=== PATIENT | female | born 1935 | race Caucasian/White ===

== ENCOUNTER 2020-08-21 20:21 | Inpatient (IN) ==
[2020-08-24] MEDS: Ipratropium/Albuterol Neb 3 ML IH SCH ×2 (16:28→20:25)
[2020-08-24] MEDS ORDERED: Dextrose Gel 15 GM/37.5 ML TUBE PO PRN ×2 (16:35)
[2020-08-24] MEDS ORDERED: *HR* Dextrose 50 % in Water (Vial) 50 ML VIAL IVP PRN (16:35)
[2020-08-24] MEDS ORDERED: D5% in Water 1,000 ML IVC PRN (16:35)
[2020-08-24] MEDS ORDERED: clonazePAM 1 MG TABLET PO SCH (17:00)
[2020-08-24] MEDS: Insulin LISPRO 300 UNITS/3 ML VIAL SUBQ SCH ×2 (17:55→20:58)
[2020-08-24] MEDS: clonazePAM 0.5 MG TABLET PO SCH ×2 (17:55→20:58)
[2020-08-25] MEDS: Ipratropium/Albuterol Neb 3 ML IH SCH ×6 (04:00→20:28)
[2020-08-25 07:07] LABS: Basophils % 0.5 %; Eosinophils # 0.2 K/mcL (0.0-0.6); Hemoglobin 9.5 g/dL (11.5-15.4); Immature Granulocytes % 0.3 % (0-4); Lymphocytes # 1.7 K/mcL (0.6-4.6); Lymphocytes % 22.2 %; Mean Corpuscular HGB Conc 31.7 g/dL (31.6-35.5); Mean Corpuscular Volume 85.2 fL (83.0-100.0); Mean Platelet Volume 9.2 fL (9.4-12.4); Monocytes # 0.7 K/mcL (0.0-1.3); Monocytes % 9.4 %; Neutrophils # 4.9 K/mcL (1.6-8.9); Platelet Count 376 K/mcL (140-400); Red Blood Count 3.52 M/mcL (3.82-4.97); Red Cell Distribution Width 18.7 % (11.5-14.5); Segmented Neutrophils % 65.6 %; White Blood Count 7.4 K/mcL (4.3-11.1)
[2020-08-25 07:26] LABS: BUN/Creatinine Ratio 19 (6-26); Blood Urea Nitrogen 13 mg/dL (8-23); Calcium 8.3 mg/dL (8.6-10.3); Carbon Dioxide 33 mEq/L (23-29); Chloride 95 mEq/L (98-107); Glucose 151 mg/dL (70-105); Osmolality,Calculated 281 (280-300); Potassium 3.6 mEq/L (3.5-5.1); Sodium 134 mEq/L (136-145); eGFR For African Americans > 60 (> 60); eGFR For Non-African Americans > 60 (> 60)
[2020-08-25] MEDS: *HR* Glimepiride 2 MG TABLET PO SCH (09:46)
[2020-08-25] MEDS: clonazePAM 0.5 MG TABLET PO SCH ×4 (09:47→20:36)
[2020-08-25] MEDS: *HR* SitaGLIPtin 25 MG TABLET PO SCH (09:47)
[2020-08-25] MEDS: hydroCHLOROthiazide 25 MG TABLET PO SCH (09:47)
[2020-08-25] MEDS: Aspirin 81 MG TAB.CHEW PO SCH (09:47)
[2020-08-25] MEDS: *HR* Metformin 500 MG TABLET PO SCH (09:47)
[2020-08-25] MEDS: Furosemide 20 MG TABLET PO SCH (09:48)
[2020-08-25] MEDS: FLUoxetine HCl 10 MG CAPSULE PO SCH (09:48)
[2020-08-25] MEDS: amLODIPine 5 MG TABLET PO SCH (09:48)
[2020-08-25] MEDS: Insulin LISPRO 300 UNITS/3 ML VIAL SUBQ SCH ×4 (09:48→20:35)
[2020-08-25] MEDS: IRON POLYSACCHARIDE COMPLEX 180 MG PO SCH (09:49)
[2020-08-26] MEDS: Ipratropium/Albuterol Neb 3 ML IH SCH ×6 (00:45→20:08)
[2020-08-26] MEDS: *HR* Metformin 500 MG TABLET PO SCH (08:13)
[2020-08-26] MEDS: FLUoxetine HCl 10 MG CAPSULE PO SCH (08:13)
[2020-08-26] MEDS: Insulin LISPRO 300 UNITS/3 ML VIAL SUBQ SCH ×4 (08:13→20:28)
[2020-08-26] MEDS: Aspirin 81 MG TAB.CHEW PO SCH (08:13)
[2020-08-26] MEDS: clonazePAM 0.5 MG TABLET PO SCH ×4 (08:14→20:25)
[2020-08-26] MEDS: *HR* SitaGLIPtin 25 MG TABLET PO SCH (08:14)
[2020-08-26] MEDS: hydroCHLOROthiazide 25 MG TABLET PO SCH (08:14)
[2020-08-26] MEDS: amLODIPine 5 MG TABLET PO SCH (08:14)
[2020-08-26] MEDS: Furosemide 20 MG TABLET PO SCH (08:14)
[2020-08-26] MEDS: *HR* Glimepiride 2 MG TABLET PO SCH (08:15)
[2020-08-26] MEDS: IRON POLYSACCHARIDE COMPLEX 180 MG PO SCH (08:15)
[2020-08-27] MEDS: Ipratropium/Albuterol Neb 3 ML IH SCH ×6 (01:04→21:14)
[2020-08-27] MEDS: Insulin LISPRO 300 UNITS/3 ML VIAL SUBQ SCH ×4 (08:28→21:44)
[2020-08-27] MEDS: *HR* Glimepiride 2 MG TABLET PO SCH (08:29)
[2020-08-27] MEDS: hydroCHLOROthiazide 25 MG TABLET PO SCH (08:29)
[2020-08-27] MEDS: amLODIPine 5 MG TABLET PO SCH (08:29)
[2020-08-27] MEDS: Aspirin 81 MG TAB.CHEW PO SCH (08:30)
[2020-08-27] MEDS: FLUoxetine HCl 10 MG CAPSULE PO SCH (08:30)
[2020-08-27] MEDS: clonazePAM 0.5 MG TABLET PO SCH ×4 (08:30→21:37)
[2020-08-27] MEDS: *HR* Metformin 500 MG TABLET PO SCH (08:30)
[2020-08-27] MEDS: Furosemide 20 MG TABLET PO SCH (08:30)
[2020-08-27] MEDS: *HR* SitaGLIPtin 25 MG TABLET PO SCH (08:31)
[2020-08-27] MEDS: IRON POLYSACCHARIDE COMPLEX 180 MG PO SCH (21:32)
[2020-08-28] MEDS: Ondansetron ODT 4 MG TAB.RAPDIS PO PRN (00:35)
[2020-08-28] MEDS: Ipratropium/Albuterol Neb 3 ML IH SCH ×6 (00:46→20:28)
[2020-08-28] MEDS ORDERED: Melatonin 3 MG TABLET PO ONE (00:55)
[2020-08-28] MEDS: Acetaminophen 325 MG TABLET PO PRN (01:05)
[2020-08-28] MEDS: Aspirin 81 MG TAB.CHEW PO SCH (08:08)
[2020-08-28] MEDS: *HR* Metformin 500 MG TABLET PO SCH (08:11)
[2020-08-28] MEDS: amLODIPine 5 MG TABLET PO SCH (08:11)
[2020-08-28] MEDS: FLUoxetine HCl 10 MG CAPSULE PO SCH (08:11)
[2020-08-28] MEDS: *HR* Glimepiride 2 MG TABLET PO SCH (08:11)
[2020-08-28] MEDS: Furosemide 20 MG TABLET PO SCH (08:11)
[2020-08-28] MEDS: IRON POLYSACCHARIDE COMPLEX 180 MG PO SCH (08:12)
[2020-08-28] MEDS: clonazePAM 0.5 MG TABLET PO SCH ×4 (08:12→21:54)
[2020-08-28] MEDS: Insulin LISPRO 300 UNITS/3 ML VIAL SUBQ SCH ×4 (08:12→21:31)
[2020-08-28] MEDS: hydroCHLOROthiazide 25 MG TABLET PO SCH (08:12)
[2020-08-28] MEDS: *HR* SitaGLIPtin 25 MG TABLET PO SCH (08:12)
[2020-08-29] MEDS: Ipratropium/Albuterol Neb 3 ML IH SCH ×6 (05:54→20:33)
[2020-08-29] MEDS: Acetaminophen 325 MG TABLET PO PRN ×2 (07:30→20:07)
[2020-08-29] MEDS: FLUoxetine HCl 10 MG CAPSULE PO SCH (08:25)
[2020-08-29] MEDS: *HR* SitaGLIPtin 25 MG TABLET PO SCH (08:26)
[2020-08-29] MEDS: amLODIPine 5 MG TABLET PO SCH (08:27)
[2020-08-29] MEDS: *HR* Glimepiride 2 MG TABLET PO SCH (08:27)
[2020-08-29] MEDS: hydroCHLOROthiazide 25 MG TABLET PO SCH (08:28)
[2020-08-29] MEDS: Aspirin 81 MG TAB.CHEW PO SCH (08:28)
[2020-08-29] MEDS: Furosemide 20 MG TABLET PO SCH (08:28)
[2020-08-29] MEDS: *HR* Metformin 500 MG TABLET PO SCH (08:28)
[2020-08-29] MEDS: Insulin LISPRO 300 UNITS/3 ML VIAL SUBQ SCH ×4 (08:29→19:36)
[2020-08-29] MEDS: Nicotine 21 MG PATCH.TD24 TD SCH (08:29)
[2020-08-29] MEDS: clonazePAM 0.5 MG TABLET PO SCH ×4 (08:29→19:55)
[2020-08-29] MEDS: IRON POLYSACCHARIDE COMPLEX 180 MG PO SCH (09:20)
[2020-08-30] MEDS: Ipratropium/Albuterol Neb 3 ML IH SCH ×6 (00:20→20:30)
[2020-08-30] MEDS: Acetaminophen 325 MG TABLET PO PRN ×2 (06:05→20:49)
[2020-08-30] MEDS: Insulin LISPRO 300 UNITS/3 ML VIAL SUBQ SCH ×4 (09:12→20:12)
[2020-08-30] MEDS: clonazePAM 0.5 MG TABLET PO SCH ×4 (09:49→20:48)
[2020-08-30] MEDS: *HR* Metformin 500 MG TABLET PO SCH (09:49)
[2020-08-30] MEDS: amLODIPine 5 MG TABLET PO SCH (09:49)
[2020-08-30] MEDS: Aspirin 81 MG TAB.CHEW PO SCH (09:50)
[2020-08-30] MEDS: *HR* SitaGLIPtin 25 MG TABLET PO SCH (09:50)
[2020-08-30] MEDS: Furosemide 20 MG TABLET PO SCH (09:51)
[2020-08-30] MEDS: FLUoxetine HCl 10 MG CAPSULE PO SCH (09:51)
[2020-08-30] MEDS: hydroCHLOROthiazide 25 MG TABLET PO SCH (09:51)
[2020-08-30] MEDS: IRON POLYSACCHARIDE COMPLEX 180 MG PO SCH (09:52)
[2020-08-30] MEDS: Nicotine 21 MG PATCH.TD24 TD SCH (09:52)
[2020-08-30] MEDS: *HR* Glimepiride 2 MG TABLET PO SCH (20:13)
[2020-08-30] MEDS: Melatonin 3 MG TABLET PO PRN (20:49)
[2020-08-31] MEDS: Ipratropium/Albuterol Neb 3 ML IH SCH ×6 (00:04→20:33)
[2020-08-31 08:04] LABS: BUN/Creatinine Ratio 27 (6-26); Blood Urea Nitrogen 21 mg/dL (8-23); Calcium 8.8 mg/dL (8.6-10.3); Carbon Dioxide 33 mEq/L (23-29); Chloride 97 mEq/L (98-107); Glucose 113 mg/dL (70-105); Hematocrit 29.8 % (35.3-44.9); Hemoglobin 9.7 g/dL (11.5-15.4); Mean Corpuscular HGB Conc 32.6 g/dL (31.6-35.5); Mean Corpuscular Hemoglobin 27.6 pg (28.0-33.3); Mean Corpuscular Volume 84.7 fL (83.0-100.0); Osmolality,Calculated 284 (280-300); Platelet Count 442 K/mcL (140-400); Red Blood Count 3.52 M/mcL (3.82-4.97); Red Cell Distribution Width 18.8 % (11.5-14.5); Sodium 135 mEq/L (136-145); White Blood Count 4.3 K/mcL (4.3-11.1); eGFR For African Americans > 60 (> 60); eGFR For Non-African Americans > 60 (> 60)
[2020-08-31 08:05] LABS: Basophils # 0.1 K/mcL (0.0-0.2); Basophils % 1.2 %; Eosinophils # 0.3 K/mcL (0.0-0.6); Eosinophils % 6.1 %; Immature Granulocytes % 0.2 % (0-4); Lymphocytes # 1.7 K/mcL (0.6-4.6); Lymphocytes % 40.1 %; Mean Platelet Volume 9.6 fL (9.4-12.4); Monocytes # 0.6 K/mcL (0.0-1.3); Monocytes % 13.6 %; Neutrophils # 1.7 K/mcL (1.6-8.9); Segmented Neutrophils % 38.8 %
[2020-08-31] MEDS: clonazePAM 0.5 MG TABLET PO SCH ×4 (09:24→20:15)
[2020-08-31] MEDS: *HR* SitaGLIPtin 25 MG TABLET PO SCH (09:24)
[2020-08-31] MEDS: Acetaminophen 325 MG TABLET PO PRN (09:25)
[2020-08-31] MEDS: amLODIPine 5 MG TABLET PO SCH (09:25)
[2020-08-31] MEDS: Aspirin 81 MG TAB.CHEW PO SCH (09:25)
[2020-08-31] MEDS: *HR* Metformin 500 MG TABLET PO SCH (09:25)
[2020-08-31] MEDS: hydroCHLOROthiazide 25 MG TABLET PO SCH (09:25)
[2020-08-31] MEDS: Furosemide 20 MG TABLET PO SCH (09:25)
[2020-08-31] MEDS: FLUoxetine HCl 10 MG CAPSULE PO SCH (09:25)
[2020-08-31] MEDS: Insulin LISPRO 300 UNITS/3 ML VIAL SUBQ SCH ×4 (09:26→20:17)
[2020-08-31] MEDS: Nicotine 21 MG PATCH.TD24 TD SCH (09:26)
[2020-08-31] MEDS: IRON POLYSACCHARIDE COMPLEX 180 MG PO SCH (09:26)
[2020-09-01] MEDS: Ipratropium/Albuterol Neb 3 ML IH SCH ×6 (01:11→20:29)
[2020-09-01] MEDS: Insulin LISPRO 300 UNITS/3 ML VIAL SUBQ SCH ×4 (07:37→20:48)
[2020-09-01] MEDS: Furosemide 20 MG TABLET PO SCH (09:03)
[2020-09-01] MEDS: *HR* Metformin 500 MG TABLET PO SCH (09:03)
[2020-09-01] MEDS: clonazePAM 0.5 MG TABLET PO SCH ×4 (09:03→21:08)
[2020-09-01] MEDS: FLUoxetine HCl 10 MG CAPSULE PO SCH (09:04)
[2020-09-01] MEDS: amLODIPine 5 MG TABLET PO SCH (09:04)
[2020-09-01] MEDS: Aspirin 81 MG TAB.CHEW PO SCH (09:04)
[2020-09-01] MEDS: *HR* SitaGLIPtin 25 MG TABLET PO SCH (09:04)
[2020-09-01] MEDS: hydroCHLOROthiazide 25 MG TABLET PO SCH (09:04)
[2020-09-01] MEDS: Nicotine 21 MG PATCH.TD24 TD SCH (09:05)
[2020-09-01] MEDS: IRON POLYSACCHARIDE COMPLEX 180 MG PO SCH (09:08)
[2020-09-01] MEDS ORDERED: *HR* OxyCODONE/APAP 7.5/325 TABLET PO STA (09:23)
[2020-09-01] MEDS: Melatonin 3 MG TABLET PO PRN (21:08)
[2020-09-02] MEDS: Ipratropium/Albuterol Neb 3 ML IH SCH ×3 (00:36→07:23)
[2020-09-02] MEDS: Insulin LISPRO 300 UNITS/3 ML VIAL SUBQ SCH ×4 (09:27→21:58)
[2020-09-02] MEDS: *HR* Metformin 500 MG TABLET PO SCH (09:28)
[2020-09-02] MEDS: hydroCHLOROthiazide 25 MG TABLET PO SCH (09:28)
[2020-09-02] MEDS: *HR* SitaGLIPtin 25 MG TABLET PO SCH (09:29)
[2020-09-02] MEDS: Aspirin 81 MG TAB.CHEW PO SCH (09:29)
[2020-09-02] MEDS: clonazePAM 0.5 MG TABLET PO SCH ×4 (09:30→22:04)
[2020-09-02] MEDS: amLODIPine 5 MG TABLET PO SCH (09:30)
[2020-09-02] MEDS: FLUoxetine HCl 10 MG CAPSULE PO SCH (09:31)
[2020-09-02] MEDS: Furosemide 20 MG TABLET PO SCH (09:32)
[2020-09-02] MEDS: IRON POLYSACCHARIDE COMPLEX 180 MG PO SCH (09:33)
[2020-09-02] MEDS: Nicotine 21 MG PATCH.TD24 TD SCH (09:33)
[2020-09-02] MEDS ORDERED: Ipratropium/Albuterol Neb 3 ML IH PRN (09:58)
[2020-09-03] MEDS: Acetaminophen 325 MG TABLET PO PRN (04:34)
[2020-09-03] MEDS: Insulin LISPRO 300 UNITS/3 ML VIAL SUBQ SCH ×4 (09:03→20:55)
[2020-09-03] MEDS: clonazePAM 0.5 MG TABLET PO SCH ×3 (09:05→20:54)
[2020-09-03] MEDS: Aspirin 81 MG TAB.CHEW PO SCH (09:05)
[2020-09-03] MEDS: hydroCHLOROthiazide 25 MG TABLET PO SCH (09:05)
[2020-09-03] MEDS: amLODIPine 5 MG TABLET PO SCH (09:05)
[2020-09-03] MEDS: Furosemide 20 MG TABLET PO SCH (09:06)
[2020-09-03] MEDS: IRON POLYSACCHARIDE COMPLEX 180 MG PO SCH (09:06)
[2020-09-03] MEDS: FLUoxetine HCl 10 MG CAPSULE PO SCH (09:06)
[2020-09-03] MEDS: *HR* Metformin 500 MG TABLET PO SCH (09:06)
[2020-09-03] MEDS: Nicotine 21 MG PATCH.TD24 TD SCH (09:12)
[2020-09-03] MEDS: Melatonin 3 MG TABLET PO PRN (20:54)
[2020-09-04] MEDS: Insulin LISPRO 300 UNITS/3 ML VIAL SUBQ SCH ×4 (09:18→20:21)
[2020-09-04] MEDS: FLUoxetine HCl 10 MG CAPSULE PO SCH (09:20)
[2020-09-04] MEDS: Furosemide 20 MG TABLET PO SCH (09:20)
[2020-09-04] MEDS: *HR* Metformin 500 MG TABLET PO SCH (09:20)
[2020-09-04] MEDS: amLODIPine 5 MG TABLET PO SCH (09:20)
[2020-09-04] MEDS: Nicotine 21 MG PATCH.TD24 TD SCH (09:21)
[2020-09-04] MEDS: hydroCHLOROthiazide 25 MG TABLET PO SCH (09:21)
[2020-09-04] MEDS: Aspirin 81 MG TAB.CHEW PO SCH (09:21)
[2020-09-04] MEDS: IRON POLYSACCHARIDE COMPLEX 180 MG PO SCH (09:22)
[2020-09-04] MEDS: Melatonin 3 MG TABLET PO PRN (20:20)
[2020-09-04] MEDS: clonazePAM 0.5 MG TABLET PO SCH (20:20)
[2020-09-05] MEDS: hydroCHLOROthiazide 25 MG TABLET PO SCH (08:07)
[2020-09-05] MEDS: FLUoxetine HCl 10 MG CAPSULE PO SCH (08:07)
[2020-09-05] MEDS: amLODIPine 5 MG TABLET PO SCH (08:08)
[2020-09-05] MEDS: Furosemide 20 MG TABLET PO SCH (08:08)
[2020-09-05] MEDS: IRON POLYSACCHARIDE COMPLEX 180 MG PO SCH (08:08)
[2020-09-05] MEDS: Insulin LISPRO 300 UNITS/3 ML VIAL SUBQ SCH ×4 (08:08→21:05)
[2020-09-05] MEDS: Nicotine 21 MG PATCH.TD24 TD SCH (08:08)
[2020-09-05] MEDS: Aspirin 81 MG TAB.CHEW PO SCH (08:08)
[2020-09-05] MEDS: *HR* Metformin 500 MG TABLET PO SCH (08:08)
[2020-09-05] MEDS: Melatonin 3 MG TABLET PO PRN (21:04)
[2020-09-05] MEDS: clonazePAM 0.5 MG TABLET PO SCH (21:04)
[2020-09-06] MEDS: hydroCHLOROthiazide 25 MG TABLET PO SCH (08:19)
[2020-09-06] MEDS: Aspirin 81 MG TAB.CHEW PO SCH (08:19)
[2020-09-06] MEDS: FLUoxetine HCl 10 MG CAPSULE PO SCH (08:19)
[2020-09-06] MEDS: amLODIPine 5 MG TABLET PO SCH (08:20)
[2020-09-06] MEDS: *HR* Metformin 500 MG TABLET PO SCH (08:20)
[2020-09-06] MEDS: Furosemide 20 MG TABLET PO SCH (08:20)
[2020-09-06] MEDS: Insulin LISPRO 300 UNITS/3 ML VIAL SUBQ SCH ×4 (08:21→20:30)
[2020-09-06] MEDS: Nicotine 21 MG PATCH.TD24 TD SCH (08:21)
[2020-09-06] MEDS: IRON POLYSACCHARIDE COMPLEX 180 MG PO SCH (08:21)
[2020-09-06] MEDS: clonazePAM 0.5 MG TABLET PO SCH (20:30)
[2020-09-06] MEDS: Melatonin 3 MG TABLET PO PRN (20:30)
[2020-09-07] MEDS: Insulin LISPRO 300 UNITS/3 ML VIAL SUBQ SCH ×4 (07:48→20:22)
[2020-09-07] MEDS: Furosemide 20 MG TABLET PO SCH (07:49)
[2020-09-07] MEDS: FLUoxetine HCl 10 MG CAPSULE PO SCH (07:49)
[2020-09-07] MEDS: Nicotine 21 MG PATCH.TD24 TD SCH (07:50)
[2020-09-07] MEDS: Aspirin 81 MG TAB.CHEW PO SCH (07:50)
[2020-09-07] MEDS: *HR* Metformin 500 MG TABLET PO SCH (07:50)
[2020-09-07] MEDS: hydroCHLOROthiazide 25 MG TABLET PO SCH (07:55)
[2020-09-07] MEDS: amLODIPine 5 MG TABLET PO SCH (07:56)
[2020-09-07] MEDS: IRON POLYSACCHARIDE COMPLEX 180 MG PO SCH (08:03)
[2020-09-07] MEDS: Melatonin 3 MG TABLET PO PRN (20:20)
[2020-09-07] MEDS: clonazePAM 0.5 MG TABLET PO SCH (20:20)
[2020-09-08] MEDS: FLUoxetine HCl 10 MG CAPSULE PO SCH (07:32)
[2020-09-08] MEDS: Aspirin 81 MG TAB.CHEW PO SCH (07:32)
[2020-09-08] MEDS: hydroCHLOROthiazide 25 MG TABLET PO SCH (07:32)
[2020-09-08] MEDS: amLODIPine 5 MG TABLET PO SCH (07:32)
[2020-09-08] MEDS: *HR* Metformin 500 MG TABLET PO SCH (07:32)
[2020-09-08] MEDS: Furosemide 20 MG TABLET PO SCH (07:32)
[2020-09-08] MEDS: Nicotine 21 MG PATCH.TD24 TD SCH (07:33)
[2020-09-08] MEDS: IRON POLYSACCHARIDE COMPLEX 180 MG PO SCH (07:33)
[2020-09-08] MEDS: Insulin LISPRO 300 UNITS/3 ML VIAL SUBQ SCH ×4 (07:34→20:59)
[2020-09-08] MEDS: clonazePAM 0.5 MG TABLET PO SCH (21:00)
[2020-09-08] MEDS: Melatonin 3 MG TABLET PO PRN (21:01)
[2020-09-09] MEDS: amLODIPine 5 MG TABLET PO SCH (08:18)
[2020-09-09] MEDS: Insulin LISPRO 300 UNITS/3 ML VIAL SUBQ SCH ×5 (08:18→20:18)
[2020-09-09] MEDS: Aspirin 81 MG TAB.CHEW PO SCH (08:18)
[2020-09-09] MEDS: FLUoxetine HCl 10 MG CAPSULE PO SCH (08:18)
[2020-09-09] MEDS: Furosemide 20 MG TABLET PO SCH (08:18)
[2020-09-09] MEDS: *HR* Metformin 500 MG TABLET PO SCH (08:18)
[2020-09-09] MEDS: hydroCHLOROthiazide 25 MG TABLET PO SCH (08:18)
[2020-09-09] MEDS: Nicotine 21 MG PATCH.TD24 TD SCH (08:19)
[2020-09-09] MEDS: IRON POLYSACCHARIDE COMPLEX 180 MG PO SCH (08:19)
[2020-09-09] MEDS: Melatonin 3 MG TABLET PO PRN (20:17)
[2020-09-09] MEDS: clonazePAM 0.5 MG TABLET PO SCH (20:18)
[2020-09-10] MEDS: hydroCHLOROthiazide 25 MG TABLET PO SCH (07:59)
[2020-09-10] MEDS: Aspirin 81 MG TAB.CHEW PO SCH (07:59)
[2020-09-10] MEDS: *HR* Metformin 500 MG TABLET PO SCH (07:59)
[2020-09-10] MEDS: Furosemide 20 MG TABLET PO SCH (07:59)
[2020-09-10] MEDS: amLODIPine 5 MG TABLET PO SCH (07:59)
[2020-09-10] MEDS: Nicotine 21 MG PATCH.TD24 TD SCH (08:00)
[2020-09-10] MEDS: FLUoxetine HCl 10 MG CAPSULE PO SCH (08:00)
[2020-09-10] MEDS: IRON POLYSACCHARIDE COMPLEX 180 MG PO SCH (08:00)
[2020-09-10] MEDS: Insulin LISPRO 300 UNITS/3 ML VIAL SUBQ SCH ×4 (08:17→21:02)
[2020-09-10] MEDS: Melatonin 3 MG TABLET PO PRN (21:01)
[2020-09-10] MEDS: clonazePAM 0.5 MG TABLET PO SCH (21:01)
[2020-09-11] MEDS: FLUoxetine HCl 10 MG CAPSULE PO SCH (08:08)
[2020-09-11] MEDS: amLODIPine 5 MG TABLET PO SCH (08:08)
[2020-09-11] MEDS: *HR* Metformin 500 MG TABLET PO SCH (08:08)
[2020-09-11] MEDS: Aspirin 81 MG TAB.CHEW PO SCH (08:08)
[2020-09-11] MEDS: hydroCHLOROthiazide 25 MG TABLET PO SCH (08:08)
[2020-09-11] MEDS: Nicotine 21 MG PATCH.TD24 TD SCH (08:09)
[2020-09-11] MEDS: Furosemide 20 MG TABLET PO SCH (08:09)
[2020-09-11] MEDS: IRON POLYSACCHARIDE COMPLEX 180 MG PO SCH (08:09)
[2020-09-11] MEDS: Insulin LISPRO 300 UNITS/3 ML VIAL SUBQ SCH ×4 (08:13→20:44)
[2020-09-11] MEDS: Melatonin 3 MG TABLET PO PRN (20:43)
[2020-09-11] MEDS: Ondansetron ODT 4 MG TAB.RAPDIS PO PRN (20:43)
[2020-09-11] MEDS: clonazePAM 0.5 MG TABLET PO SCH (20:43)
[2020-09-12] MEDS: Insulin LISPRO 300 UNITS/3 ML VIAL SUBQ SCH ×4 (09:20→21:02)
[2020-09-12] MEDS: Aspirin 81 MG TAB.CHEW PO SCH (09:21)
[2020-09-12] MEDS: hydroCHLOROthiazide 25 MG TABLET PO SCH (09:21)
[2020-09-12] MEDS: *HR* Metformin 500 MG TABLET PO SCH (09:21)
[2020-09-12] MEDS: Furosemide 20 MG TABLET PO SCH (09:21)
[2020-09-12] MEDS: amLODIPine 5 MG TABLET PO SCH (09:21)
[2020-09-12] MEDS: IRON POLYSACCHARIDE COMPLEX 180 MG PO SCH (09:22)
[2020-09-12] MEDS: Nicotine 21 MG PATCH.TD24 TD SCH (09:22)
[2020-09-12] MEDS: FLUoxetine HCl 10 MG CAPSULE PO SCH (09:23)
[2020-09-12] MEDS: clonazePAM 0.5 MG TABLET PO SCH (21:00)
[2020-09-12] MEDS: Melatonin 3 MG TABLET PO PRN (21:02)
[2020-09-13 07:15] LABS: Basophils % 0.4 %; Eosinophils # 0.2 K/mcL (0.0-0.6); Eosinophils % 4.2 %; Hemoglobin 9.7 g/dL (11.5-15.4); Immature Granulocytes % 0.4 % (0-4); Lymphocytes # 2.2 K/mcL (0.6-4.6); Lymphocytes % 38.3 %; Mean Corpuscular HGB Conc 32.3 g/dL (31.6-35.5); Mean Corpuscular Volume 86.7 fL (83.0-100.0); Mean Platelet Volume 9.7 fL (9.4-12.4); Monocytes # 0.7 K/mcL (0.0-1.3); Monocytes % 11.5 %; Neutrophils # 2.6 K/mcL (1.6-8.9); Platelet Count 300 K/mcL (140-400); Red Blood Count 3.46 M/mcL (3.82-4.97); Red Cell Distribution Width 18.1 % (11.5-14.5); Segmented Neutrophils % 45.2 %; White Blood Count 5.7 K/mcL (4.3-11.1)
[2020-09-13 07:56] LABS: BUN/Creatinine Ratio 32 (6-26); Blood Urea Nitrogen 25 mg/dL (8-23); Calcium 9.1 mg/dL (8.6-10.3); Carbon Dioxide 33 mEq/L (23-29); Chloride 98 mEq/L (98-107); Glucose 165 mg/dL (70-105); Osmolality,Calculated 292 (280-300); Potassium 4.1 mEq/L (3.5-5.1); Sodium 137 mEq/L (136-145); eGFR For African Americans > 60 (> 60); eGFR For Non-African Americans > 60 (> 60)
[2020-09-13] MEDS: Aspirin 81 MG TAB.CHEW PO SCH (08:03)
[2020-09-13] MEDS: Furosemide 20 MG TABLET PO SCH (08:03)
[2020-09-13] MEDS: *HR* Metformin 500 MG TABLET PO SCH (08:03)
[2020-09-13] MEDS: hydroCHLOROthiazide 25 MG TABLET PO SCH (08:03)
[2020-09-13] MEDS: amLODIPine 5 MG TABLET PO SCH (08:03)
[2020-09-13] MEDS: Nicotine 21 MG PATCH.TD24 TD SCH (08:04)
[2020-09-13] MEDS: FLUoxetine HCl 10 MG CAPSULE PO SCH (08:04)
[2020-09-13] MEDS: IRON POLYSACCHARIDE COMPLEX 180 MG PO SCH (08:05)
[2020-09-13] MEDS: Insulin LISPRO 300 UNITS/3 ML VIAL SUBQ SCH ×4 (08:05→20:56)
[2020-09-13] MEDS: clonazePAM 0.5 MG TABLET PO SCH (20:05)
[2020-09-13] MEDS: Melatonin 3 MG TABLET PO PRN (20:06)
[2020-09-14] MEDS: IRON POLYSACCHARIDE COMPLEX 180 MG PO SCH (09:07)
[2020-09-14] MEDS: hydroCHLOROthiazide 25 MG TABLET PO SCH (09:14)
[2020-09-14] MEDS: Aspirin 81 MG TAB.CHEW PO SCH (09:14)
[2020-09-14] MEDS: Furosemide 20 MG TABLET PO SCH (09:14)
[2020-09-14] MEDS: *HR* Metformin 500 MG TABLET PO SCH (09:15)
[2020-09-14] MEDS: FLUoxetine HCl 10 MG CAPSULE PO SCH (09:15)
[2020-09-14] MEDS: amLODIPine 5 MG TABLET PO SCH (09:15)
[2020-09-14] MEDS: Nicotine 21 MG PATCH.TD24 TD SCH (09:16)
[2020-09-14] MEDS: Insulin LISPRO 300 UNITS/3 ML VIAL SUBQ SCH ×4 (09:16→20:17)
[2020-09-14] MEDS: Ondansetron ODT 4 MG TAB.RAPDIS PO PRN (09:21)
[2020-09-14] MEDS: clonazePAM 0.5 MG TABLET PO SCH (20:14)
[2020-09-14] MEDS: Melatonin 3 MG TABLET PO PRN (20:18)
[2020-09-15] MEDS: IRON POLYSACCHARIDE COMPLEX 180 MG PO SCH (09:09)
[2020-09-15] MEDS: Furosemide 20 MG TABLET PO SCH (09:17)
[2020-09-15] MEDS: *HR* Metformin 500 MG TABLET PO SCH (09:17)
[2020-09-15] MEDS: amLODIPine 5 MG TABLET PO SCH (09:17)
[2020-09-15] MEDS: Aspirin 81 MG TAB.CHEW PO SCH (09:17)
[2020-09-15] MEDS: hydroCHLOROthiazide 25 MG TABLET PO SCH (09:17)
[2020-09-15] MEDS: FLUoxetine HCl 10 MG CAPSULE PO SCH (09:17)
[2020-09-15] MEDS: Insulin LISPRO 300 UNITS/3 ML VIAL SUBQ SCH ×4 (09:17→21:01)
[2020-09-15] MEDS: clonazePAM 0.5 MG TABLET PO SCH (20:59)
[2020-09-15] MEDS: Melatonin 3 MG TABLET PO PRN (20:59)
[2020-09-16] MEDS: Ondansetron ODT 4 MG TAB.RAPDIS PO PRN ×2 (08:16→20:00)
[2020-09-16] MEDS: hydroCHLOROthiazide 25 MG TABLET PO SCH (08:20)
[2020-09-16] MEDS: *HR* Metformin 500 MG TABLET PO SCH (08:21)
[2020-09-16] MEDS: amLODIPine 5 MG TABLET PO SCH (08:21)
[2020-09-16] MEDS: Aspirin 81 MG TAB.CHEW PO SCH (08:21)
[2020-09-16] MEDS: Furosemide 20 MG TABLET PO SCH (08:21)
[2020-09-16] MEDS: FLUoxetine HCl 10 MG CAPSULE PO SCH (08:21)
[2020-09-16] MEDS: IRON POLYSACCHARIDE COMPLEX 180 MG PO SCH (08:22)
[2020-09-16] MEDS: Insulin LISPRO 300 UNITS/3 ML VIAL SUBQ SCH ×2 (08:26→17:07)
[2020-09-16] MEDS: Melatonin 3 MG TABLET PO PRN (20:00)
[2020-09-16] MEDS: clonazePAM 0.5 MG TABLET PO SCH (20:00)
[2020-09-17] MEDS: amLODIPine 5 MG TABLET PO SCH (10:52)
[2020-09-17] MEDS: hydroCHLOROthiazide 25 MG TABLET PO SCH (10:52)
[2020-09-17] MEDS: Aspirin 81 MG TAB.CHEW PO SCH (10:53)
[2020-09-17] MEDS: FLUoxetine HCl 10 MG CAPSULE PO SCH (10:53)
[2020-09-17] MEDS: Furosemide 20 MG TABLET PO SCH (10:53)
[2020-09-17] MEDS: IRON POLYSACCHARIDE COMPLEX 180 MG PO SCH (10:55)
[2020-09-17] MEDS: *HR* Metformin 500 MG TABLET PO SCH (10:55)
[2020-09-17] MEDS: Ondansetron ODT 4 MG TAB.RAPDIS PO PRN (18:43)
[2020-09-17] MEDS: Melatonin 3 MG TABLET PO PRN (21:28)
[2020-09-17] MEDS: clonazePAM 0.5 MG TABLET PO SCH (21:28)
[2020-09-18] MEDS: Ondansetron ODT 4 MG TAB.RAPDIS PO PRN (05:49)
[2020-09-18 06:36] VITALS: BP 126/52
[2020-09-18] MEDS: hydroCHLOROthiazide 25 MG TABLET PO SCH (08:45)
[2020-09-18] MEDS: Aspirin 81 MG TAB.CHEW PO SCH (08:45)
[2020-09-18] MEDS: FLUoxetine HCl 10 MG CAPSULE PO SCH (08:46)
[2020-09-18] MEDS: IRON POLYSACCHARIDE COMPLEX 180 MG PO SCH (08:46)
[2020-09-18] MEDS: amLODIPine 5 MG TABLET PO SCH (08:46)
[2020-09-18] MEDS: Furosemide 20 MG TABLET PO SCH (08:46)
[2020-09-18] MEDS: *HR* Metformin 500 MG TABLET PO SCH (08:46)
== END 2020-09-18 11:28 | disposition home health service (06) | DRG 945 ==
LOC: INPPIK 08-24 15:06
PROVIDERS: ADMIT Family Medicine; ATTEND Family Medicine

== ENCOUNTER 2021-09-23 11:54 | Inpatient (IN) ==
[2021-09-23] MEDS ORDERED: D5% in Water 1,000 ML IVC PRN (17:15)
[2021-09-23] MEDS ORDERED: Dextrose 4 GM Chewable Tablets PO PRN ×2 (17:15)
[2021-09-23] MEDS ORDERED: *HR* Dextrose 50 % in Water (Syg) 50 ML SYRINGE IVP PRN (17:15)
[2021-09-23] MEDS: *HR* OxyCODONE Immed Rel 5 MG TABLET PO PRN (19:45)
[2021-09-23] MEDS: Acetaminophen 325 MG TABLET PO PRN (21:09)
[2021-09-23] MEDS: Gabapentin 300 MG CAPSULE PO SCH (21:09)
[2021-09-23] MEDS: clonazePAM 0.5 MG TABLET PO SCH (21:09)
[2021-09-24 07:01] LABS: Basophils % 0.5 %; Eosinophils # 0.5 K/mcL (0.0-0.6); Eosinophils % 6.8 %; Hematocrit 31.2 % (35.3-44.9); Hemoglobin 9.6 g/dL (11.5-15.4); Immature Granulocytes % 0.4 % (0-4); Lymphocytes # 1.7 K/mcL (0.6-4.6); Lymphocytes % 20.9 %; Mean Corpuscular HGB Conc 30.8 g/dL (31.6-35.5); Mean Corpuscular Hemoglobin 27.4 pg (28.0-33.3); Mean Corpuscular Volume 89.1 fL (83.0-100.0); Mean Platelet Volume 9.3 fL (9.4-12.4); Monocytes # 0.7 K/mcL (0.0-1.3); Monocytes % 8.3 %; Platelet Count 397 K/mcL (140-400); Red Cell Distribution Width 14.5 % (11.5-14.5); Segmented Neutrophils % 63.1 %; White Blood Count 7.9 K/mcL (4.3-11.1)
[2021-09-24 07:22] LABS: BUN/Creatinine Ratio 20 (6-26); Blood Urea Nitrogen 15 mg/dL (8-23); Calcium 8.6 mg/dL (8.6-10.3); Carbon Dioxide 31 mEq/L (23-29); Chloride 101 mEq/L (98-107); Glucose 103 mg/dL (70-105); Osmolality,Calculated 287 (280-300); Potassium 4.1 mEq/L (3.5-5.1); Sodium 138 mEq/L (136-145); eGFR For African Americans > 60 (> 60); eGFR For Non-African Americans > 60 (> 60)
[2021-09-24] MEDS: Insulin LISPRO 300 UNITS/3 ML VIAL SUBQ SCH ×3 (07:29→17:36)
[2021-09-24] MEDS ORDERED: Aspirin 325 MG TABLET PO SCH (09:00)
[2021-09-24] MEDS: FLUoxetine HCl 10 MG CAPSULE PO SCH (10:04)
[2021-09-24] MEDS: Furosemide 20 MG TABLET PO SCH (10:04)
[2021-09-24] MEDS: amLODIPine 5 MG TABLET PO SCH (10:05)
[2021-09-24] MEDS: Gabapentin 300 MG CAPSULE PO SCH ×2 (10:06→19:53)
[2021-09-24] MEDS: Nicotine 14 MG PATCH.TD24 TD SCH (10:06)
[2021-09-24] MEDS: SITAGLIPTIN PHOS PO SCH (10:13)
[2021-09-24] MEDS: METFORMIN HCL PO SCH (10:13)
[2021-09-24] MEDS: Acetaminophen 325 MG TABLET PO PRN (18:13)
[2021-09-24] MEDS: *HR* OxyCODONE Immed Rel 5 MG TABLET PO PRN (19:54)
[2021-09-24] MEDS: clonazePAM 0.5 MG TABLET PO SCH (19:54)
[2021-09-25] MEDS ORDERED: *HR* OxyCODONE/APAP 5/325 TABLET PO ONE ×2 (01:04→14:22)
[2021-09-25] MEDS: *HR* Enoxaparin 40 MG/0.4 ML SYRINGE SQ SCH (06:47)
[2021-09-25] MEDS: Aspirin Enteric Coated 81 MG Tablet PO SCH (08:59)
[2021-09-25] MEDS: Gabapentin 300 MG CAPSULE PO SCH ×2 (08:59→20:24)
[2021-09-25] MEDS: Nicotine 14 MG PATCH.TD24 TD SCH (08:59)
[2021-09-25] MEDS: Furosemide 20 MG TABLET PO SCH (08:59)
[2021-09-25] MEDS: *HR* OxyCODONE Immed Rel 5 MG TABLET PO PRN ×2 (08:59→20:25)
[2021-09-25] MEDS: FLUoxetine HCl 10 MG CAPSULE PO SCH (08:59)
[2021-09-25] MEDS: hydrALAZINE 25 MG TABLET PO SCH ×2 (08:59→16:03)
[2021-09-25] MEDS: amLODIPine 5 MG TABLET PO SCH (08:59)
[2021-09-25] MEDS: METFORMIN HCL PO SCH (09:00)
[2021-09-25] MEDS: SITAGLIPTIN PHOS PO SCH (09:00)
[2021-09-25] MEDS: Insulin LISPRO 300 UNITS/3 ML VIAL SUBQ SCH ×2 (09:00→12:10)
[2021-09-25] MEDS: clonazePAM 0.5 MG TABLET PO SCH (20:25)
[2021-09-25] MEDS ORDERED: Insulin LISPRO 300 UNITS/3 ML VIAL SUBQ SCH (21:00)
[2021-09-26] MEDS: hydrALAZINE 25 MG TABLET PO SCH ×3 (00:54→16:23)
[2021-09-26] MEDS: *HR* Enoxaparin 40 MG/0.4 ML SYRINGE SQ SCH (06:27)
[2021-09-26] MEDS: *HR* OxyCODONE Immed Rel 5 MG TABLET PO PRN ×2 (07:20→16:23)
[2021-09-26] MEDS: FLUoxetine HCl 10 MG CAPSULE PO SCH (08:25)
[2021-09-26] MEDS: amLODIPine 5 MG TABLET PO SCH (08:25)
[2021-09-26] MEDS: Nicotine 14 MG PATCH.TD24 TD SCH (08:26)
[2021-09-26] MEDS: Furosemide 20 MG TABLET PO SCH (08:26)
[2021-09-26] MEDS: SITAGLIPTIN PHOS PO SCH (08:26)
[2021-09-26] MEDS: METFORMIN HCL PO SCH (08:26)
[2021-09-26] MEDS: *HR* Metformin 500 MG TABLET PO SCH (08:26)
[2021-09-26] MEDS: Gabapentin 300 MG CAPSULE PO SCH ×2 (08:26→19:57)
[2021-09-26] MEDS: Aspirin Enteric Coated 81 MG Tablet PO SCH (08:26)
[2021-09-26] MEDS: clonazePAM 0.5 MG TABLET PO SCH (19:57)
[2021-09-27] MEDS: *HR* OxyCODONE Immed Rel 5 MG TABLET PO PRN ×3 (00:19→22:53)
[2021-09-27] MEDS: hydrALAZINE 25 MG TABLET PO SCH ×3 (00:19→16:09)
[2021-09-27] MEDS: *HR* Enoxaparin 40 MG/0.4 ML SYRINGE SQ SCH (06:11)
[2021-09-27] MEDS: Gabapentin 300 MG CAPSULE PO SCH ×2 (08:16→21:08)
[2021-09-27] MEDS: amLODIPine 5 MG TABLET PO SCH (08:16)
[2021-09-27] MEDS: Aspirin Enteric Coated 81 MG Tablet PO SCH (08:16)
[2021-09-27] MEDS: FLUoxetine HCl 10 MG CAPSULE PO SCH (08:16)
[2021-09-27] MEDS: *HR* Metformin 500 MG TABLET PO SCH (08:16)
[2021-09-27] MEDS: Furosemide 20 MG TABLET PO SCH (08:17)
[2021-09-27] MEDS: Nicotine 14 MG PATCH.TD24 TD SCH (08:17)
[2021-09-27] MEDS: SITAGLIPTIN PHOS PO SCH (08:18)
[2021-09-27] MEDS: METFORMIN HCL PO SCH (08:18)
[2021-09-27] MEDS: clonazePAM 0.5 MG TABLET PO SCH (21:08)
[2021-09-28] MEDS: hydrALAZINE 25 MG TABLET PO SCH ×3 (00:51→16:46)
[2021-09-28] MEDS: *HR* Enoxaparin 40 MG/0.4 ML SYRINGE SQ SCH (05:12)
[2021-09-28] MEDS: Furosemide 20 MG TABLET PO SCH (07:25)
[2021-09-28] MEDS: Aspirin Enteric Coated 81 MG Tablet PO SCH (07:25)
[2021-09-28] MEDS: Gabapentin 300 MG CAPSULE PO SCH ×2 (07:25→20:48)
[2021-09-28] MEDS: amLODIPine 5 MG TABLET PO SCH (07:26)
[2021-09-28] MEDS: *HR* Metformin 500 MG TABLET PO SCH (07:26)
[2021-09-28] MEDS: FLUoxetine HCl 10 MG CAPSULE PO SCH (07:26)
[2021-09-28] MEDS: *HR* OxyCODONE Immed Rel 5 MG TABLET PO PRN ×3 (07:26→20:48)
[2021-09-28] MEDS: Nicotine 14 MG PATCH.TD24 TD SCH (07:27)
[2021-09-28] MEDS: SITAGLIPTIN PHOS PO SCH (07:27)
[2021-09-28] MEDS: METFORMIN HCL PO SCH (07:27)
[2021-09-28] MEDS: Acetaminophen 325 MG TABLET PO PRN (09:44)
[2021-09-28] MEDS ORDERED: *HR* OxyCODONE Immed Rel 5 MG TABLET PO PRN (09:55)
[2021-09-28] MEDS: clonazePAM 0.5 MG TABLET PO SCH (20:48)
[2021-09-28] MEDS: Melatonin 3 MG TABLET PO SCH (20:49)
[2021-09-29] MEDS: hydrALAZINE 25 MG TABLET PO SCH ×3 (00:55→16:43)
[2021-09-29] MEDS: *HR* Enoxaparin 40 MG/0.4 ML SYRINGE SQ SCH (06:51)
[2021-09-29] MEDS: *HR* Metformin 500 MG TABLET PO SCH (09:33)
[2021-09-29] MEDS: FLUoxetine HCl 10 MG CAPSULE PO SCH (09:33)
[2021-09-29] MEDS: Gabapentin 300 MG CAPSULE PO SCH ×2 (09:33→22:51)
[2021-09-29] MEDS: amLODIPine 5 MG TABLET PO SCH (09:33)
[2021-09-29] MEDS: Aspirin Enteric Coated 81 MG Tablet PO SCH (09:33)
[2021-09-29] MEDS: Furosemide 20 MG TABLET PO SCH (09:34)
[2021-09-29] MEDS: Nicotine 14 MG PATCH.TD24 TD SCH (09:34)
[2021-09-29] MEDS: *HR* OxyCODONE Immed Rel 5 MG TABLET PO PRN ×3 (09:34→22:51)
[2021-09-29] MEDS: METFORMIN HCL PO SCH (09:35)
[2021-09-29] MEDS: SITAGLIPTIN PHOS PO SCH (09:35)
[2021-09-29] MEDS: clonazePAM 0.5 MG TABLET PO SCH (22:51)
[2021-09-29] MEDS: Melatonin 3 MG TABLET PO SCH (22:52)
[2021-09-30] MEDS: hydrALAZINE 25 MG TABLET PO SCH ×4 (00:51→23:47)
[2021-09-30] MEDS: *HR* Enoxaparin 40 MG/0.4 ML SYRINGE SQ SCH (06:25)
[2021-09-30] MEDS: *HR* OxyCODONE Immed Rel 5 MG TABLET PO PRN ×2 (09:41→16:23)
[2021-09-30] MEDS: SITAGLIPTIN PHOS PO SCH (09:42)
[2021-09-30] MEDS: Nicotine 14 MG PATCH.TD24 TD SCH (09:42)
[2021-09-30] MEDS: *HR* Metformin 500 MG TABLET PO SCH (09:42)
[2021-09-30] MEDS: METFORMIN HCL PO SCH (09:42)
[2021-09-30] MEDS: FLUoxetine HCl 10 MG CAPSULE PO SCH (09:42)
[2021-09-30] MEDS: Gabapentin 300 MG CAPSULE PO SCH ×2 (09:42→20:35)
[2021-09-30] MEDS: Furosemide 20 MG TABLET PO SCH (09:42)
[2021-09-30] MEDS: amLODIPine 5 MG TABLET PO SCH (09:42)
[2021-09-30] MEDS: Aspirin Enteric Coated 81 MG Tablet PO SCH (09:42)
[2021-09-30 15:32] LABS: Basophils # 0.1 K/mcL (0.0-0.2); Basophils % 0.5 %; Eosinophils # 0.1 K/mcL (0.0-0.6); Eosinophils % 0.9 %; Hematocrit 34.1 % (35.3-44.9); Hemoglobin 10.5 g/dL (11.5-15.4); Immature Granulocytes % 0.4 % (0-4); Lymphocytes # 1.8 K/mcL (0.6-4.6); Lymphocytes % 18.3 %; Mean Corpuscular HGB Conc 30.8 g/dL (31.6-35.5); Mean Corpuscular Hemoglobin 27.5 pg (28.0-33.3); Mean Corpuscular Volume 89.3 fL (83.0-100.0); Monocytes # 0.8 K/mcL (0.0-1.3); Monocytes % 7.8 %; Neutrophils # 7.2 K/mcL (1.6-8.9); Platelet Count 472 K/mcL (140-400); Red Blood Count 3.82 M/mcL (3.82-4.97); Red Cell Distribution Width 14.6 % (11.5-14.5); Segmented Neutrophils % 72.1 %
[2021-09-30 15:45] LABS: BUN/Creatinine Ratio 19 (6-26); Blood Urea Nitrogen 17 mg/dL (8-23); Calcium 8.7 mg/dL (8.6-10.3); Carbon Dioxide 29 mEq/L (23-29); Chloride 96 mEq/L (98-107); Glucose 166 mg/dL (70-105); Osmolality,Calculated 285 (280-300); Potassium 3.5 mEq/L (3.5-5.1); Sodium 135 mEq/L (136-145); eGFR For African Americans > 60 (> 60); eGFR For Non-African Americans 59 (> 60)
[2021-09-30] MEDS: Melatonin 3 MG TABLET PO SCH (20:35)
[2021-09-30] MEDS: clonazePAM 0.5 MG TABLET PO SCH (20:35)
[2021-10-01] MEDS: *HR* OxyCODONE Immed Rel 5 MG TABLET PO PRN (05:31)
[2021-10-01] MEDS: *HR* Enoxaparin 40 MG/0.4 ML SYRINGE SQ SCH (05:31)
[2021-10-01] MEDS: Gabapentin 300 MG CAPSULE PO SCH ×2 (08:18→20:45)
[2021-10-01] MEDS: Aspirin Enteric Coated 81 MG Tablet PO SCH (08:18)
[2021-10-01] MEDS: amLODIPine 5 MG TABLET PO SCH (08:19)
[2021-10-01] MEDS: hydrALAZINE 25 MG TABLET PO SCH ×3 (08:19→22:45)
[2021-10-01] MEDS: Furosemide 20 MG TABLET PO SCH (08:19)
[2021-10-01] MEDS: Nicotine 14 MG PATCH.TD24 TD SCH (08:20)
[2021-10-01] MEDS: FLUoxetine HCl 10 MG CAPSULE PO SCH (08:20)
[2021-10-01] MEDS: *HR* Metformin 500 MG TABLET PO SCH (08:20)
[2021-10-01] MEDS: SITAGLIPTIN PHOS PO SCH (08:22)
[2021-10-01] MEDS: METFORMIN HCL PO SCH (08:22)
[2021-10-01] MEDS: Acetaminophen 325 MG TABLET PO PRN (10:37)
[2021-10-01] MEDS: Acetaminophen 325 MG TABLET PO SCH ×2 (16:52→20:52)
[2021-10-01] MEDS: clonazePAM 0.5 MG TABLET PO SCH (20:45)
[2021-10-01] MEDS: Melatonin 3 MG TABLET PO SCH (20:45)
[2021-10-02] MEDS: *HR* Enoxaparin 40 MG/0.4 ML SYRINGE SQ SCH (05:24)
[2021-10-02] MEDS: amLODIPine 5 MG TABLET PO SCH (08:13)
[2021-10-02] MEDS: Furosemide 20 MG TABLET PO SCH (08:13)
[2021-10-02] MEDS: FLUoxetine HCl 10 MG CAPSULE PO SCH (08:13)
[2021-10-02] MEDS: Nicotine 14 MG PATCH.TD24 TD SCH (08:13)
[2021-10-02] MEDS: SITAGLIPTIN PHOS PO SCH (08:14)
[2021-10-02] MEDS: Gabapentin 300 MG CAPSULE PO SCH ×2 (08:14→19:59)
[2021-10-02] MEDS: METFORMIN HCL PO SCH (08:14)
[2021-10-02] MEDS: Aspirin Enteric Coated 81 MG Tablet PO SCH (08:14)
[2021-10-02] MEDS: *HR* Metformin 500 MG TABLET PO SCH (08:14)
[2021-10-02] MEDS: hydrALAZINE 25 MG TABLET PO SCH ×2 (08:14→16:19)
[2021-10-02] MEDS: Acetaminophen 325 MG TABLET PO SCH ×3 (08:40→19:59)
[2021-10-02] MEDS: *HR* OxyCODONE Immed Rel 5 MG TABLET PO PRN ×2 (08:40→17:22)
[2021-10-02] MEDS: Melatonin 3 MG TABLET PO SCH (19:59)
[2021-10-02] MEDS: clonazePAM 0.5 MG TABLET PO SCH (19:59)
[2021-10-03] MEDS: hydrALAZINE 25 MG TABLET PO SCH ×4 (00:31→22:44)
[2021-10-03] MEDS: *HR* Enoxaparin 40 MG/0.4 ML SYRINGE SQ SCH (05:41)
[2021-10-03] MEDS: *HR* OxyCODONE Immed Rel 5 MG TABLET PO PRN ×2 (07:40→20:15)
[2021-10-03] MEDS: amLODIPine 5 MG TABLET PO SCH (08:15)
[2021-10-03] MEDS: Furosemide 20 MG TABLET PO SCH (08:15)
[2021-10-03] MEDS: *HR* Metformin 500 MG TABLET PO SCH (08:15)
[2021-10-03] MEDS: Gabapentin 300 MG CAPSULE PO SCH ×2 (08:15→20:01)
[2021-10-03] MEDS: Nicotine 14 MG PATCH.TD24 TD SCH (08:15)
[2021-10-03] MEDS: Aspirin Enteric Coated 81 MG Tablet PO SCH (08:15)
[2021-10-03] MEDS: FLUoxetine HCl 10 MG CAPSULE PO SCH (08:15)
[2021-10-03] MEDS: METFORMIN HCL PO SCH (09:12)
[2021-10-03] MEDS: SITAGLIPTIN PHOS PO SCH (09:12)
[2021-10-03] MEDS: Acetaminophen 325 MG TABLET PO SCH ×3 (10:16→20:02)
[2021-10-03] MEDS: clonazePAM 0.5 MG TABLET PO SCH (20:00)
[2021-10-03] MEDS: Melatonin 3 MG TABLET PO SCH (20:01)
[2021-10-04] MEDS: *HR* Enoxaparin 40 MG/0.4 ML SYRINGE SQ SCH (07:01)
[2021-10-04] MEDS: hydrALAZINE 25 MG TABLET PO SCH ×2 (08:35→16:35)
[2021-10-04] MEDS: Aspirin Enteric Coated 81 MG Tablet PO SCH (08:35)
[2021-10-04] MEDS: *HR* OxyCODONE Immed Rel 5 MG TABLET PO PRN ×2 (08:36→16:36)
[2021-10-04] MEDS: FLUoxetine HCl 10 MG CAPSULE PO SCH (08:36)
[2021-10-04] MEDS: Gabapentin 300 MG CAPSULE PO SCH ×2 (08:37→20:43)
[2021-10-04] MEDS: Furosemide 20 MG TABLET PO SCH (08:37)
[2021-10-04] MEDS: Nicotine 14 MG PATCH.TD24 TD SCH (08:37)
[2021-10-04] MEDS: amLODIPine 5 MG TABLET PO SCH (08:37)
[2021-10-04] MEDS: *HR* Metformin 500 MG TABLET PO SCH (08:37)
[2021-10-04] MEDS: METFORMIN HCL PO SCH (08:39)
[2021-10-04] MEDS: Acetaminophen 325 MG TABLET PO SCH ×3 (08:39→22:14)
[2021-10-04] MEDS: SITAGLIPTIN PHOS PO SCH (08:39)
[2021-10-04] MEDS: Ondansetron ODT 4 MG TAB.RAPDIS SL PRN (14:30)
[2021-10-04] MEDS: clonazePAM 0.5 MG TABLET PO SCH (20:43)
[2021-10-04] MEDS: Melatonin 3 MG TABLET PO SCH (20:43)
[2021-10-05] MEDS: *HR* OxyCODONE Immed Rel 5 MG TABLET PO PRN ×3 (01:17→19:37)
[2021-10-05] MEDS: hydrALAZINE 25 MG TABLET PO SCH ×4 (01:27→23:45)
[2021-10-05] MEDS: *HR* Enoxaparin 40 MG/0.4 ML SYRINGE SQ SCH (06:01)
[2021-10-05] MEDS: Furosemide 20 MG TABLET PO SCH (08:35)
[2021-10-05] MEDS: Gabapentin 300 MG CAPSULE PO SCH ×2 (08:35→19:36)
[2021-10-05] MEDS: amLODIPine 5 MG TABLET PO SCH (08:35)
[2021-10-05] MEDS: FLUoxetine HCl 10 MG CAPSULE PO SCH (08:35)
[2021-10-05] MEDS: Aspirin Enteric Coated 81 MG Tablet PO SCH (08:35)
[2021-10-05] MEDS: *HR* Metformin 500 MG TABLET PO SCH (08:36)
[2021-10-05] MEDS: Nicotine 14 MG PATCH.TD24 TD SCH (08:36)
[2021-10-05] MEDS: SITAGLIPTIN PHOS PO SCH (08:36)
[2021-10-05] MEDS: METFORMIN HCL PO SCH (08:36)
[2021-10-05] MEDS: Acetaminophen 325 MG TABLET PO SCH ×3 (08:37→19:38)
[2021-10-05] MEDS: Ondansetron ODT 4 MG TAB.RAPDIS SL PRN (11:58)
[2021-10-05] MEDS: clonazePAM 0.5 MG TABLET PO SCH (19:37)
[2021-10-05] MEDS: Melatonin 3 MG TABLET PO SCH (19:37)
[2021-10-06] MEDS: *HR* Enoxaparin 40 MG/0.4 ML SYRINGE SQ SCH (04:57)
[2021-10-06 07:33] LABS: Hematocrit 32.6 % (35.3-44.9); Mean Corpuscular HGB Conc 30.7 g/dL (31.6-35.5); Mean Corpuscular Hemoglobin 27.4 pg (28.0-33.3); Mean Corpuscular Volume 89.3 fL (83.0-100.0); Mean Platelet Volume 9.7 fL (9.4-12.4); Platelet Count 469 K/mcL (140-400); Red Blood Count 3.65 M/mcL (3.82-4.97); Red Cell Distribution Width 14.2 % (11.5-14.5); White Blood Count 6.8 K/mcL (4.3-11.1)
[2021-10-06 07:55] LABS: BUN/Creatinine Ratio 26 (6-26); Blood Urea Nitrogen 21 mg/dL (8-23); Calcium 8.7 mg/dL (8.6-10.3); Carbon Dioxide 28 mEq/L (23-29); Chloride 99 mEq/L (98-107); Glucose 89 mg/dL (70-105); Osmolality,Calculated 282 (280-300); Sodium 135 mEq/L (136-145); eGFR For African Americans > 60 (> 60); eGFR For Non-African Americans > 60 (> 60)
[2021-10-06] MEDS: Nicotine 14 MG PATCH.TD24 TD SCH (09:00)
[2021-10-06] MEDS: Gabapentin 300 MG CAPSULE PO SCH ×2 (09:01→20:38)
[2021-10-06] MEDS: amLODIPine 5 MG TABLET PO SCH (09:01)
[2021-10-06] MEDS: *HR* Metformin 500 MG TABLET PO SCH (09:01)
[2021-10-06] MEDS: Aspirin Enteric Coated 81 MG Tablet PO SCH (09:01)
[2021-10-06] MEDS: FLUoxetine HCl 10 MG CAPSULE PO SCH (09:01)
[2021-10-06] MEDS: METFORMIN HCL PO SCH (09:02)
[2021-10-06] MEDS: hydrALAZINE 25 MG TABLET PO SCH ×2 (09:02→18:07)
[2021-10-06] MEDS: Furosemide 20 MG TABLET PO SCH (09:02)
[2021-10-06] MEDS: SITAGLIPTIN PHOS PO SCH (09:02)
[2021-10-06] MEDS: Acetaminophen 325 MG TABLET PO SCH ×3 (09:02→22:50)
[2021-10-06] MEDS: *HR* OxyCODONE Immed Rel 5 MG TABLET PO PRN (20:38)
[2021-10-06] MEDS: Melatonin 3 MG TABLET PO SCH (20:38)
[2021-10-06] MEDS: clonazePAM 0.5 MG TABLET PO SCH (20:38)
[2021-10-06] MEDS: Ondansetron ODT 4 MG TAB.RAPDIS SL PRN (20:41)
[2021-10-07] MEDS: hydrALAZINE 25 MG TABLET PO SCH ×3 (00:02→16:04)
[2021-10-07] MEDS: *HR* Enoxaparin 40 MG/0.4 ML SYRINGE SQ SCH (04:42)
[2021-10-07] MEDS: *HR* OxyCODONE Immed Rel 5 MG TABLET PO PRN ×2 (04:42→16:04)
[2021-10-07] MEDS: Furosemide 20 MG TABLET PO SCH (07:43)
[2021-10-07] MEDS: FLUoxetine HCl 10 MG CAPSULE PO SCH (07:43)
[2021-10-07] MEDS: amLODIPine 5 MG TABLET PO SCH (07:43)
[2021-10-07] MEDS: Aspirin Enteric Coated 81 MG Tablet PO SCH (07:43)
[2021-10-07] MEDS: METFORMIN HCL PO SCH (07:45)
[2021-10-07] MEDS: SITAGLIPTIN PHOS PO SCH (07:45)
[2021-10-07] MEDS: Gabapentin 300 MG CAPSULE PO SCH ×2 (07:45→20:11)
[2021-10-07] MEDS: Nicotine 14 MG PATCH.TD24 TD SCH (07:45)
[2021-10-07] MEDS: *HR* Metformin 500 MG TABLET PO SCH (07:45)
[2021-10-07] MEDS: Acetaminophen 325 MG TABLET PO SCH ×3 (07:46→20:12)
[2021-10-07] MEDS: tiZANidine 4 MG TABLET PO SCH ×2 (16:04→20:11)
[2021-10-07] MEDS: Melatonin 3 MG TABLET PO SCH (20:11)
[2021-10-07] MEDS: clonazePAM 0.5 MG TABLET PO SCH (20:11)
[2021-10-08] MEDS: hydrALAZINE 25 MG TABLET PO SCH ×3 (00:29→15:39)
[2021-10-08] MEDS: *HR* Enoxaparin 40 MG/0.4 ML SYRINGE SQ SCH (04:14)
[2021-10-08] MEDS: Nicotine 14 MG PATCH.TD24 TD SCH (07:30)
[2021-10-08] MEDS: Aspirin Enteric Coated 81 MG Tablet PO SCH (07:31)
[2021-10-08] MEDS: amLODIPine 5 MG TABLET PO SCH (07:31)
[2021-10-08] MEDS: Gabapentin 300 MG CAPSULE PO SCH ×2 (07:31→20:36)
[2021-10-08] MEDS: FLUoxetine HCl 10 MG CAPSULE PO SCH (07:31)
[2021-10-08] MEDS: *HR* Metformin 500 MG TABLET PO SCH (07:31)
[2021-10-08] MEDS: tiZANidine 4 MG TABLET PO SCH ×3 (07:32→20:36)
[2021-10-08] MEDS: Furosemide 20 MG TABLET PO SCH (07:32)
[2021-10-08] MEDS: *HR* OxyCODONE Immed Rel 5 MG TABLET PO PRN ×2 (07:32→20:35)
[2021-10-08] MEDS: SITAGLIPTIN PHOS PO SCH (07:33)
[2021-10-08] MEDS: METFORMIN HCL PO SCH (07:33)
[2021-10-08] MEDS: Acetaminophen 325 MG TABLET PO SCH ×3 (07:33→20:37)
[2021-10-08] MEDS: Melatonin 3 MG TABLET PO SCH (20:36)
[2021-10-08] MEDS: clonazePAM 0.5 MG TABLET PO SCH (20:36)
[2021-10-09] MEDS: hydrALAZINE 25 MG TABLET PO SCH ×3 (00:50→18:47)
[2021-10-09] MEDS: *HR* Enoxaparin 40 MG/0.4 ML SYRINGE SQ SCH (05:53)
[2021-10-09] MEDS: *HR* OxyCODONE Immed Rel 5 MG TABLET PO PRN ×2 (10:16→21:50)
[2021-10-09] MEDS: Furosemide 20 MG TABLET PO SCH (10:17)
[2021-10-09] MEDS: FLUoxetine HCl 10 MG CAPSULE PO SCH (10:17)
[2021-10-09] MEDS: *HR* Metformin 500 MG TABLET PO SCH (10:17)
[2021-10-09] MEDS: Aspirin Enteric Coated 81 MG Tablet PO SCH (10:17)
[2021-10-09] MEDS: Gabapentin 300 MG CAPSULE PO SCH ×2 (10:17→21:50)
[2021-10-09] MEDS: Nicotine 14 MG PATCH.TD24 TD SCH (10:17)
[2021-10-09] MEDS: amLODIPine 5 MG TABLET PO SCH (10:17)
[2021-10-09] MEDS: tiZANidine 4 MG TABLET PO SCH ×3 (10:17→21:49)
[2021-10-09] MEDS: METFORMIN HCL PO SCH (10:19)
[2021-10-09] MEDS: SITAGLIPTIN PHOS PO SCH (10:19)
[2021-10-09] MEDS: Acetaminophen 325 MG TABLET PO SCH ×3 (10:19→21:51)
[2021-10-09] MEDS: Melatonin 3 MG TABLET PO SCH (21:50)
[2021-10-09] MEDS: clonazePAM 0.5 MG TABLET PO SCH (21:50)
[2021-10-10] MEDS: hydrALAZINE 25 MG TABLET PO SCH ×3 (00:49→16:54)
[2021-10-10] MEDS: *HR* Enoxaparin 40 MG/0.4 ML SYRINGE SQ SCH (06:03)
[2021-10-10] MEDS: amLODIPine 5 MG TABLET PO SCH (09:22)
[2021-10-10] MEDS: *HR* Metformin 500 MG TABLET PO SCH (09:23)
[2021-10-10] MEDS: Furosemide 20 MG TABLET PO SCH (09:23)
[2021-10-10] MEDS: FLUoxetine HCl 10 MG CAPSULE PO SCH (09:23)
[2021-10-10] MEDS: tiZANidine 4 MG TABLET PO SCH ×3 (09:23→20:04)
[2021-10-10] MEDS: Gabapentin 300 MG CAPSULE PO SCH ×2 (09:23→20:04)
[2021-10-10] MEDS: Acetaminophen 325 MG TABLET PO SCH ×3 (09:23→21:49)
[2021-10-10] MEDS: Aspirin Enteric Coated 81 MG Tablet PO SCH (09:23)
[2021-10-10] MEDS: METFORMIN HCL PO SCH (09:24)
[2021-10-10] MEDS: SITAGLIPTIN PHOS PO SCH (09:24)
[2021-10-10] MEDS: Nicotine 14 MG PATCH.TD24 TD SCH (09:24)
[2021-10-10] MEDS: Ondansetron ODT 4 MG TAB.RAPDIS SL PRN ×2 (10:45→20:04)
[2021-10-10] MEDS: clonazePAM 0.5 MG TABLET PO SCH (20:04)
[2021-10-10] MEDS: Melatonin 3 MG TABLET PO SCH (20:04)
[2021-10-11] MEDS: hydrALAZINE 25 MG TABLET PO SCH ×3 (00:47→17:00)
[2021-10-11] MEDS: *HR* OxyCODONE Immed Rel 5 MG TABLET PO PRN ×2 (04:58→21:04)
[2021-10-11] MEDS: *HR* Enoxaparin 40 MG/0.4 ML SYRINGE SQ SCH (04:59)
[2021-10-11] MEDS: amLODIPine 5 MG TABLET PO SCH (08:48)
[2021-10-11] MEDS: tiZANidine 4 MG TABLET PO SCH ×3 (08:48→21:04)
[2021-10-11] MEDS: Aspirin Enteric Coated 81 MG Tablet PO SCH (08:49)
[2021-10-11] MEDS: *HR* Metformin 500 MG TABLET PO SCH (08:49)
[2021-10-11] MEDS: Furosemide 20 MG TABLET PO SCH (08:49)
[2021-10-11] MEDS: FLUoxetine HCl 10 MG CAPSULE PO SCH (08:49)
[2021-10-11] MEDS: Nicotine 14 MG PATCH.TD24 TD SCH (08:50)
[2021-10-11] MEDS: Gabapentin 300 MG CAPSULE PO SCH ×2 (08:50→21:04)
[2021-10-11] MEDS: METFORMIN HCL PO SCH (08:51)
[2021-10-11] MEDS: SITAGLIPTIN PHOS PO SCH (08:51)
[2021-10-11] MEDS: Acetaminophen 325 MG TABLET PO SCH ×3 (08:52→21:53)
[2021-10-11] MEDS: Ondansetron ODT 4 MG TAB.RAPDIS SL PRN (19:19)
[2021-10-11] MEDS: Melatonin 3 MG TABLET PO SCH (21:04)
[2021-10-11] MEDS: clonazePAM 0.5 MG TABLET PO SCH (21:04)
[2021-10-12] MEDS: hydrALAZINE 25 MG TABLET PO SCH ×4 (00:47→23:52)
[2021-10-12] MEDS: *HR* Enoxaparin 40 MG/0.4 ML SYRINGE SQ SCH (05:15)
[2021-10-12] MEDS: Nicotine 14 MG PATCH.TD24 TD SCH (10:13)
[2021-10-12] MEDS: FLUoxetine HCl 10 MG CAPSULE PO SCH (10:14)
[2021-10-12] MEDS: amLODIPine 5 MG TABLET PO SCH (10:14)
[2021-10-12] MEDS: *HR* Metformin 500 MG TABLET PO SCH (10:14)
[2021-10-12] MEDS: Gabapentin 300 MG CAPSULE PO SCH ×2 (10:14→20:46)
[2021-10-12] MEDS: tiZANidine 4 MG TABLET PO SCH ×3 (10:14→20:46)
[2021-10-12] MEDS: Aspirin Enteric Coated 81 MG Tablet PO SCH (10:14)
[2021-10-12] MEDS: Furosemide 20 MG TABLET PO SCH (10:15)
[2021-10-12] MEDS: Acetaminophen 325 MG TABLET PO SCH ×3 (10:15→21:09)
[2021-10-12] MEDS: METFORMIN HCL PO SCH (10:20)
[2021-10-12] MEDS: SITAGLIPTIN PHOS PO SCH (10:20)
[2021-10-12] MEDS: Melatonin 3 MG TABLET PO SCH (20:45)
[2021-10-12] MEDS: *HR* OxyCODONE Immed Rel 5 MG TABLET PO PRN (20:46)
[2021-10-12] MEDS: clonazePAM 0.5 MG TABLET PO SCH (20:46)
[2021-10-13] MEDS: hydrALAZINE 25 MG TABLET PO SCH ×4 (00:55→23:15)
[2021-10-13] MEDS: *HR* Enoxaparin 40 MG/0.4 ML SYRINGE SQ SCH (05:59)
[2021-10-13] MEDS: tiZANidine 4 MG TABLET PO SCH ×3 (07:56→22:45)
[2021-10-13] MEDS: amLODIPine 5 MG TABLET PO SCH (07:56)
[2021-10-13] MEDS: Gabapentin 300 MG CAPSULE PO SCH ×2 (07:56→22:45)
[2021-10-13] MEDS: *HR* Metformin 500 MG TABLET PO SCH (07:56)
[2021-10-13] MEDS: Aspirin Enteric Coated 81 MG Tablet PO SCH (07:56)
[2021-10-13] MEDS: Furosemide 20 MG TABLET PO SCH (07:57)
[2021-10-13] MEDS: FLUoxetine HCl 10 MG CAPSULE PO SCH (07:57)
[2021-10-13] MEDS: Nicotine 14 MG PATCH.TD24 TD SCH (07:57)
[2021-10-13] MEDS: *HR* OxyCODONE Immed Rel 5 MG TABLET PO PRN ×2 (07:57→18:13)
[2021-10-13] MEDS: SITAGLIPTIN PHOS PO SCH (07:58)
[2021-10-13] MEDS: METFORMIN HCL PO SCH (07:58)
[2021-10-13] MEDS: Acetaminophen 325 MG TABLET PO SCH ×3 (10:35→22:46)
[2021-10-13] MEDS: Ondansetron ODT 4 MG TAB.RAPDIS SL PRN (18:11)
[2021-10-13] MEDS: clonazePAM 0.5 MG TABLET PO SCH (22:45)
[2021-10-13] MEDS: Melatonin 3 MG TABLET PO SCH (22:45)
[2021-10-14] MEDS: *HR* OxyCODONE Immed Rel 5 MG TABLET PO PRN ×2 (02:01→15:22)
[2021-10-14] MEDS: *HR* Enoxaparin 40 MG/0.4 ML SYRINGE SQ SCH (06:59)
[2021-10-14] MEDS: Gabapentin 300 MG CAPSULE PO SCH ×2 (09:02→20:33)
[2021-10-14] MEDS: FLUoxetine HCl 10 MG CAPSULE PO SCH (09:02)
[2021-10-14] MEDS: hydrALAZINE 25 MG TABLET PO SCH ×2 (09:02→15:22)
[2021-10-14] MEDS: Nicotine 14 MG PATCH.TD24 TD SCH (09:02)
[2021-10-14] MEDS: Aspirin Enteric Coated 81 MG Tablet PO SCH (09:03)
[2021-10-14] MEDS: *HR* Metformin 500 MG TABLET PO SCH (09:03)
[2021-10-14] MEDS: Furosemide 20 MG TABLET PO SCH (09:03)
[2021-10-14] MEDS: Acetaminophen 325 MG TABLET PO SCH ×3 (09:03→17:34)
[2021-10-14] MEDS: amLODIPine 5 MG TABLET PO SCH (09:03)
[2021-10-14] MEDS: SITAGLIPTIN PHOS PO SCH (09:03)
[2021-10-14] MEDS: tiZANidine 4 MG TABLET PO SCH ×3 (09:03→20:33)
[2021-10-14] MEDS: METFORMIN HCL PO SCH (09:03)
[2021-10-14] MEDS: Ondansetron ODT 4 MG TAB.RAPDIS SL PRN (15:22)
[2021-10-14] MEDS: Melatonin 3 MG TABLET PO SCH (20:33)
[2021-10-14] MEDS: clonazePAM 0.5 MG TABLET PO SCH (20:34)
[2021-10-15] MEDS: *HR* Enoxaparin 40 MG/0.4 ML SYRINGE SQ SCH (06:08)
[2021-10-15] MEDS: Furosemide 20 MG TABLET PO SCH (09:04)
[2021-10-15] MEDS: *HR* Metformin 500 MG TABLET PO SCH (09:05)
[2021-10-15] MEDS: Acetaminophen 325 MG TABLET PO SCH ×2 (09:05→16:38)
[2021-10-15] MEDS: tiZANidine 4 MG TABLET PO SCH ×2 (09:05→16:30)
[2021-10-15] MEDS: FLUoxetine HCl 10 MG CAPSULE PO SCH (09:05)
[2021-10-15] MEDS: Aspirin Enteric Coated 81 MG Tablet PO SCH (09:05)
[2021-10-15] MEDS: hydrALAZINE 25 MG TABLET PO SCH ×3 (09:05→16:30)
[2021-10-15] MEDS: Gabapentin 300 MG CAPSULE PO SCH (09:05)
[2021-10-15] MEDS: amLODIPine 5 MG TABLET PO SCH (09:05)
[2021-10-15] MEDS: Nicotine 14 MG PATCH.TD24 TD SCH (09:06)
[2021-10-15] MEDS: METFORMIN HCL PO SCH (09:12)
[2021-10-15] MEDS: SITAGLIPTIN PHOS PO SCH (09:12)
[2021-10-15] MEDS: *HR* OxyCODONE Immed Rel 5 MG TABLET PO PRN (11:39)
[2021-10-15] MEDS ORDERED: Moderna Covid-19 Vaccine 100MCG/0.5mL IM ONE (14:28)
[2021-10-15 19:43] VITALS: BP 138/65; PULSE 70; RESP 17; TEMP 98.2; O2SAT 95
== END 2021-10-15 20:40 | DRG 536 ==
LOC: INPPIK 17:59
PROVIDERS: ADMIT Family Medicine; ATTEND Family Medicine

== ENCOUNTER 2022-03-03 12:18 | Inpatient (IN) ==
[2022-03-03 12:40] LABS: Basophils % 0.1 %; Hematocrit 30.3 % (35.3-44.9); Hemoglobin 9.8 g/dL (11.5-15.4); Immature Granulocytes % 1.3 % (0-4); Lymphocytes # 0.8 K/mcL (0.6-4.6); Lymphocytes % 4.4 %; Mean Corpuscular HGB Conc 32.3 g/dL (31.6-35.5); Mean Corpuscular Hemoglobin 27.5 pg (28.0-33.3); Mean Corpuscular Volume 85.1 fL (83.0-100.0); Mean Platelet Volume 9.3 fL (9.4-12.4); Monocytes % 5.4 %; Neutrophils # 16.8 K/mcL (1.6-8.9); Platelet Count 369 K/mcL (140-400); Red Blood Count 3.56 M/mcL (3.82-4.97); Red Cell Distribution Width 16.3 % (11.5-14.5); Segmented Neutrophils % 88.8 %; White Blood Count 18.9 K/mcL (4.3-11.1)
[2022-03-03 12:48] LABS: INR 1.2; Prothrombin Time 13.2 Seconds (9.4-12.1)
[2022-03-03 12:51] LABS: Activated Partial Thrombo Time 30.1 Seconds (26.0-36.0)
[2022-03-03 12:59] LABS: Alanine Aminotransferase 7 Units/L (7-52); Albumin 3.5 g/dL (3.5-5.7); Albumin/Globulin Ratio 1.1 (1.1-2.2); Alkaline Phosphatase 87 Units/L (34-104); Aspartate Amino Transferase 12 Units/L (13-39); BUN/Creatinine Ratio 24 (6-26); Bilirubin,Direct 0.1 mg/dL (0.0-0.2); Bilirubin,Indirect 0.3 mg/dL (0.0-1.0); Bilirubin,Total 0.4 mg/dL (0.3-1.0); Blood Urea Nitrogen 19 mg/dL (8-23); Calcium 8.2 mg/dL (8.6-10.3); Carbon Dioxide 29 mEq/L (23-29); Chloride 99 mEq/L (98-107); Globulin 3.1 g/dL (2.4-3.5); Glucose 153 mg/dL (70-105); Osmolality,Calculated 287 (280-300); Potassium 3.6 mEq/L (3.5-5.1); Sodium 136 mEq/L (136-145); Total Protein 6.6 g/dL (6.4-8.9)
[2022-03-03 13:00] LABS: Troponin I < 0.03 ng/mL (< 0.04)
[2022-03-03] MEDS ORDERED: 0.9 % Sodium Chloride 500 ML IVC ONE (13:03)
[2022-03-03] MEDS ORDERED: cefTRIAXone 2,000 MG in 0.9 % Sodium Chloride Mini Bag 100 ML IVPB ONE (13:03)
[2022-03-03] MEDS ORDERED: Azithromycin 500 MG in 0.9 % Sodium Chloride 250 ML IVPB ONE (13:03)
[2022-03-03 14:19] LABS: Bilirubin,Urine Negative (Negative); Blood,Urine Trace-intact (Negative); Clarity,Urine Clear (Clear); Color,Urine Yellow (Yellow); Glucose,Urine (UA) Normal (Normal); Ketones,Urine Negative (Negative); Leukocyte Esterase,Urine Negative (Negative); Nitrite,Urine Negative (Negative); PH,Urine 6.5 pH Units (5.0-8.0); Protein,Urine Trace mg/dL (Neg-Trace); Urobilinogen,Urine Normal (Normal)
[2022-03-03] MEDS: 0.9 % Sodium Chloride 1,000 ML IVC SCH ×2 (14:23→21:12)
[2022-03-03 14:28] LABS: Mucus,Urine Few per lpf (None-Few); Squamous Epithelial Cell,Urine Few per hpf (None-Few); WBC,Urine 0-3 per hpf (0-3)
[2022-03-03] MEDS ORDERED: Ondansetron 4 MG/2 ML VIAL IVP PRN (18:14)
[2022-03-03] MEDS: Nicotine 21 MG PATCH.TD24 TD SCH ×2 (18:32→18:35)
[2022-03-03] MEDS: Cefepime HCl 2,000 MG in 0.9 % Sodium Chloride Mini Bag 100 ML IVPB SCH (18:32)
[2022-03-03] MEDS: Acetaminophen 325 MG TABLET PO PRN (20:02)
[2022-03-03] MEDS: Gabapentin 300 MG CAPSULE PO SCH (20:17)
[2022-03-03] MEDS: clonazePAM 0.5 MG TABLET PO SCH (20:17)
[2022-03-03] MEDS: Verapamil ER (24 HR) 180 MG TABLET.ER PO SCH (20:17)
[2022-03-04] MEDS: 0.9 % Sodium Chloride 1,000 ML IVC SCH (05:33)
[2022-03-04] MEDS: Cefepime HCl 2,000 MG in 0.9 % Sodium Chloride Mini Bag 100 ML IVPB SCH ×2 (05:34→17:12)
[2022-03-04] MEDS: *HR* Enoxaparin 40 MG/0.4 ML SYRINGE SQ SCH (05:35)
[2022-03-04 07:55] LABS: Basophils # 0.1 K/mcL (0.0-0.2); Basophils % 0.3 %; Eosinophils % 0.1 %; Hematocrit 27.3 % (35.3-44.9); Hemoglobin 8.5 g/dL (11.5-15.4); Immature Granulocytes % 1.2 % (0-4); Lymphocytes # 1.8 K/mcL (0.6-4.6); Lymphocytes % 9.5 %; Mean Corpuscular HGB Conc 31.1 g/dL (31.6-35.5); Mean Corpuscular Hemoglobin 27.3 pg (28.0-33.3); Mean Corpuscular Volume 87.8 fL (83.0-100.0); Mean Platelet Volume 9.9 fL (9.4-12.4); Monocytes # 1.3 K/mcL (0.0-1.3); Monocytes % 6.5 %; Platelet Count 308 K/mcL (140-400); Red Blood Count 3.11 M/mcL (3.82-4.97); Red Cell Distribution Width 16.9 % (11.5-14.5); Segmented Neutrophils % 82.4 %; White Blood Count 19.4 K/mcL (4.3-11.1)
[2022-03-04 08:01] LABS: Potassium 3.5 mEq/L (3.5-5.1)
[2022-03-04] MEDS: *HR* SitaGLIPtin 25 MG TABLET PO SCH (08:13)
[2022-03-04] MEDS: Furosemide 20 MG TABLET PO SCH (08:13)
[2022-03-04] MEDS: Aspirin Enteric Coated 81 MG Tablet PO SCH (08:13)
[2022-03-04] MEDS: Nicotine 21 MG PATCH.TD24 TD SCH (08:13)
[2022-03-04] MEDS: Verapamil ER (24 HR) 180 MG TABLET.ER PO SCH ×2 (08:13→20:22)
[2022-03-04] MEDS: FLUoxetine HCl 10 MG CAPSULE PO SCH (08:13)
[2022-03-04] MEDS: *HR* Metformin 500 MG TABLET PO SCH (08:13)
[2022-03-04] MEDS: Gabapentin 300 MG CAPSULE PO SCH ×2 (08:13→20:22)
[2022-03-04] MEDS ORDERED: Nicotine 14 MG PATCH.TD24 TD SCH (09:00)
[2022-03-04] MEDS ORDERED: levoFLOXacin 750 MG/150 ML 750 MG/150 ML BAG IVPB SCH (11:00)
[2022-03-04] MEDS ORDERED: Furosemide 20 MG/2 ML VIAL IVP ONE (17:44)
[2022-03-04] MEDS: clonazePAM 0.5 MG TABLET PO SCH (20:22)
[2022-03-05] MEDS: Cefepime HCl 2,000 MG in 0.9 % Sodium Chloride Mini Bag 100 ML IVPB SCH ×2 (05:51→17:14)
[2022-03-05] MEDS: *HR* Enoxaparin 40 MG/0.4 ML SYRINGE SQ SCH (05:51)
[2022-03-05 07:33] LABS: Basophils % 0.2 %; Eosinophils # 0.2 K/mcL (0.0-0.6); Eosinophils % 1.7 %; Hematocrit 26.2 % (35.3-44.9); Hemoglobin 8.2 g/dL (11.5-15.4); Immature Granulocytes % 0.6 % (0-4); Lymphocytes # 1.6 K/mcL (0.6-4.6); Lymphocytes % 12.2 %; Mean Corpuscular HGB Conc 31.3 g/dL (31.6-35.5); Mean Corpuscular Hemoglobin 27.4 pg (28.0-33.3); Mean Corpuscular Volume 87.6 fL (83.0-100.0); Monocytes # 1.2 K/mcL (0.0-1.3); Monocytes % 8.8 %; Neutrophils # 10.2 K/mcL (1.6-8.9); Platelet Count 301 K/mcL (140-400); Red Blood Count 2.99 M/mcL (3.82-4.97); Red Cell Distribution Width 16.9 % (11.5-14.5); Segmented Neutrophils % 76.5 %; White Blood Count 13.3 K/mcL (4.3-11.1)
[2022-03-05 08:02] LABS: Calcium 8.2 mg/dL (8.6-10.3); Magnesium 1.7 mg/dL (1.6-2.6); Potassium 3.7 mEq/L (3.5-5.1)
[2022-03-05] MEDS: *HR* Metformin 500 MG TABLET PO SCH (09:36)
[2022-03-05] MEDS: Aspirin Enteric Coated 81 MG Tablet PO SCH (09:36)
[2022-03-05] MEDS: Gabapentin 300 MG CAPSULE PO SCH ×2 (09:36→20:17)
[2022-03-05] MEDS: FLUoxetine HCl 10 MG CAPSULE PO SCH (09:36)
[2022-03-05] MEDS: Nicotine 21 MG PATCH.TD24 TD SCH (09:37)
[2022-03-05] MEDS: *HR* SitaGLIPtin 25 MG TABLET PO SCH (09:37)
[2022-03-05] MEDS: Verapamil ER (24 HR) 180 MG TABLET.ER PO SCH ×2 (09:37→20:17)
[2022-03-05] MEDS: Furosemide 20 MG TABLET PO SCH (09:37)
[2022-03-05] MEDS: Acetaminophen 325 MG TABLET PO PRN (20:16)
[2022-03-05] MEDS: clonazePAM 0.5 MG TABLET PO SCH (20:17)
[2022-03-06] MEDS: Cefepime HCl 2,000 MG in 0.9 % Sodium Chloride Mini Bag 100 ML IVPB SCH (05:28)
[2022-03-06] MEDS: *HR* Enoxaparin 40 MG/0.4 ML SYRINGE SQ SCH (05:30)
[2022-03-06] MEDS: Furosemide 20 MG TABLET PO SCH (07:50)
[2022-03-06] MEDS: *HR* Metformin 500 MG TABLET PO SCH (07:50)
[2022-03-06 08:22] LABS: Basophils % 0.3 %; Eosinophils # 0.4 K/mcL (0.0-0.6); Eosinophils % 3.7 %; Hematocrit 27.8 % (35.3-44.9); Hemoglobin 8.8 g/dL (11.5-15.4); Immature Granulocytes % 0.3 % (0-4); Lymphocytes # 1.9 K/mcL (0.6-4.6); Lymphocytes % 18.9 %; Mean Corpuscular HGB Conc 31.7 g/dL (31.6-35.5); Mean Corpuscular Hemoglobin 27.5 pg (28.0-33.3); Mean Corpuscular Volume 86.9 fL (83.0-100.0); Monocytes # 0.9 K/mcL (0.0-1.3); Monocytes % 8.6 %; Neutrophils # 6.9 K/mcL (1.6-8.9); Platelet Count 336 K/mcL (140-400); Red Cell Distribution Width 16.8 % (11.5-14.5); Segmented Neutrophils % 68.2 %; White Blood Count 10.1 K/mcL (4.3-11.1)
[2022-03-06] MEDS ORDERED: levoFLOXacin 750 MG/150 ML 750 MG/150 ML BAG IVPB SCH (09:00)
[2022-03-06] MEDS ORDERED: 0.9 % Sodium Chloride 1,000 ML IVC SCH (09:30)
[2022-03-06] MEDS: Verapamil ER (24 HR) 180 MG TABLET.ER PO SCH ×2 (09:46→21:24)
[2022-03-06] MEDS: Gabapentin 300 MG CAPSULE PO SCH ×2 (09:46→21:23)
[2022-03-06] MEDS: Aspirin Enteric Coated 81 MG Tablet PO SCH (09:46)
[2022-03-06] MEDS: *HR* SitaGLIPtin 25 MG TABLET PO SCH (09:46)
[2022-03-06] MEDS: FLUoxetine HCl 10 MG CAPSULE PO SCH (09:47)
[2022-03-06] MEDS: Nicotine 21 MG PATCH.TD24 TD SCH (09:47)
[2022-03-06] MEDS: predniSONE 20 MG TABLET PO SCH (11:39)
[2022-03-06] MEDS: clonazePAM 0.5 MG TABLET PO SCH (21:24)
[2022-03-07] MEDS: *HR* Enoxaparin 40 MG/0.4 ML SYRINGE SQ SCH (06:27)
[2022-03-07 06:53] LABS: Basophils % 0.3 %; Eosinophils % 0.2 %; Hematocrit 28.6 % (35.3-44.9); Immature Granulocytes % 0.5 % (0-4); Lymphocytes # 1.4 K/mcL (0.6-4.6); Lymphocytes % 21.7 %; Mean Corpuscular HGB Conc 31.5 g/dL (31.6-35.5); Mean Corpuscular Hemoglobin 27.3 pg (28.0-33.3); Mean Corpuscular Volume 86.7 fL (83.0-100.0); Mean Platelet Volume 9.7 fL (9.4-12.4); Monocytes # 0.7 K/mcL (0.0-1.3); Monocytes % 10.4 %; Neutrophils # 4.3 K/mcL (1.6-8.9); Platelet Count 337 K/mcL (140-400); Red Cell Distribution Width 16.2 % (11.5-14.5); Segmented Neutrophils % 66.9 %; White Blood Count 6.4 K/mcL (4.3-11.1)
[2022-03-07] MEDS: FLUoxetine HCl 10 MG CAPSULE PO SCH (08:11)
[2022-03-07] MEDS: Aspirin Enteric Coated 81 MG Tablet PO SCH (08:11)
[2022-03-07] MEDS: Gabapentin 300 MG CAPSULE PO SCH ×2 (08:11→20:05)
[2022-03-07] MEDS: *HR* SitaGLIPtin 25 MG TABLET PO SCH (08:11)
[2022-03-07] MEDS: Verapamil ER (24 HR) 180 MG TABLET.ER PO SCH ×2 (08:11→20:04)
[2022-03-07] MEDS: Nicotine 21 MG PATCH.TD24 TD SCH (08:12)
[2022-03-07] MEDS: *HR* Metformin 500 MG TABLET PO SCH (08:12)
[2022-03-07] MEDS: predniSONE 20 MG TABLET PO SCH (08:12)
[2022-03-07] MEDS: clonazePAM 0.5 MG TABLET PO SCH (20:05)
[2022-03-08] MEDS: *HR* Enoxaparin 40 MG/0.4 ML SYRINGE SQ SCH (06:53)
[2022-03-08 07:06] LABS: Basophils % 0.3 %; Eosinophils # 0.1 K/mcL (0.0-0.6); Eosinophils % 0.8 %; Hematocrit 26.2 % (35.3-44.9); Hemoglobin 8.2 g/dL (11.5-15.4); Immature Granulocytes % 0.6 % (0-4); Lymphocytes # 1.9 K/mcL (0.6-4.6); Lymphocytes % 25.6 %; Mean Corpuscular HGB Conc 31.3 g/dL (31.6-35.5); Mean Corpuscular Hemoglobin 27.1 pg (28.0-33.3); Mean Corpuscular Volume 86.5 fL (83.0-100.0); Mean Platelet Volume 9.7 fL (9.4-12.4); Monocytes # 0.8 K/mcL (0.0-1.3); Neutrophils # 4.5 K/mcL (1.6-8.9); Platelet Count 323 K/mcL (140-400); Red Blood Count 3.03 M/mcL (3.82-4.97); Red Cell Distribution Width 16.6 % (11.5-14.5); Segmented Neutrophils % 61.7 %; White Blood Count 7.3 K/mcL (4.3-11.1)
[2022-03-08 07:29] LABS: Calcium 8.5 mg/dL (8.6-10.3); Magnesium 1.7 mg/dL (1.6-2.6)
[2022-03-08] MEDS: Verapamil ER (24 HR) 180 MG TABLET.ER PO SCH ×2 (07:54→21:08)
[2022-03-08] MEDS: Aspirin Enteric Coated 81 MG Tablet PO SCH (07:54)
[2022-03-08] MEDS: Nicotine 21 MG PATCH.TD24 TD SCH (07:55)
[2022-03-08] MEDS: *HR* SitaGLIPtin 25 MG TABLET PO SCH (07:55)
[2022-03-08] MEDS: Gabapentin 300 MG CAPSULE PO SCH ×2 (07:55→21:08)
[2022-03-08] MEDS: FLUoxetine HCl 10 MG CAPSULE PO SCH (07:55)
[2022-03-08] MEDS: *HR* Metformin 500 MG TABLET PO SCH (07:55)
[2022-03-08] MEDS: predniSONE 20 MG TABLET PO SCH (07:55)
[2022-03-08] MEDS ORDERED: levoFLOXacin 750 MG TABLET PO SCH (09:00)
[2022-03-08 09:36] LABS: Basophils % 0.3 %; Eosinophils # 0.1 K/mcL (0.0-0.6); Eosinophils % 0.8 %; Hematocrit 28.5 % (35.3-44.9); Immature Granulocytes % 0.9 % (0-4); Lymphocytes % 22.5 %; Mean Corpuscular HGB Conc 31.6 g/dL (31.6-35.5); Mean Corpuscular Hemoglobin 27.4 pg (28.0-33.3); Mean Corpuscular Volume 86.9 fL (83.0-100.0); Mean Platelet Volume 9.5 fL (9.4-12.4); Monocytes # 0.8 K/mcL (0.0-1.3); Monocytes % 9.1 %; Neutrophils # 5.8 K/mcL (1.6-8.9); Platelet Count 363 K/mcL (140-400); Red Blood Count 3.28 M/mcL (3.82-4.97); Red Cell Distribution Width 16.5 % (11.5-14.5); Segmented Neutrophils % 66.4 %; White Blood Count 8.8 K/mcL (4.3-11.1)
[2022-03-08] MEDS: clonazePAM 0.5 MG TABLET PO SCH (21:08)
[2022-03-08 22:22] VITALS: TEMP 97.9
[2022-03-09] MEDS: *HR* Enoxaparin 40 MG/0.4 ML SYRINGE SQ SCH (05:58)
[2022-03-09 07:38] VITALS: RESP 16
[2022-03-09 07:54] LABS: Basophils % 0.3 %; Eosinophils % 0.3 %; Hematocrit 25.9 % (35.3-44.9); Hemoglobin 8.3 g/dL (11.5-15.4); Immature Granulocytes % 0.9 % (0-4); Lymphocytes # 2.1 K/mcL (0.6-4.6); Lymphocytes % 25.9 %; Mean Corpuscular Hemoglobin 27.7 pg (28.0-33.3); Mean Corpuscular Volume 86.3 fL (83.0-100.0); Mean Platelet Volume 9.5 fL (9.4-12.4); Monocytes % 12.4 %; Neutrophils # 4.8 K/mcL (1.6-8.9); Platelet Count 337 K/mcL (140-400); Red Cell Distribution Width 16.7 % (11.5-14.5); Segmented Neutrophils % 60.2 %; White Blood Count 7.9 K/mcL (4.3-11.1)
[2022-03-09 08:18] LABS: Calcium 8.6 mg/dL (8.6-10.3); Magnesium 1.8 mg/dL (1.6-2.6); Potassium 3.4 mEq/L (3.5-5.1)
[2022-03-09] MEDS: *HR* Metformin 500 MG TABLET PO SCH (09:32)
[2022-03-09] MEDS: predniSONE 20 MG TABLET PO SCH (09:32)
[2022-03-09] MEDS: Gabapentin 300 MG CAPSULE PO SCH (09:32)
[2022-03-09] MEDS: FLUoxetine HCl 10 MG CAPSULE PO SCH (09:32)
[2022-03-09] MEDS: Verapamil ER (24 HR) 180 MG TABLET.ER PO SCH (09:33)
[2022-03-09] MEDS: Aspirin Enteric Coated 81 MG Tablet PO SCH (09:34)
[2022-03-09] MEDS: Furosemide 20 MG TABLET PO SCH (09:34)
[2022-03-09] MEDS: *HR* SitaGLIPtin 25 MG TABLET PO SCH (09:34)
[2022-03-09] MEDS: Nicotine 21 MG PATCH.TD24 TD SCH (09:35)
[2022-03-09 14:01] VITALS: BP 154/69; PULSE 62; O2SAT 95
== END 2022-03-09 15:09 | disposition other institution (70) | DRG 193 ==
LOC: EMEROOPIK 12:18 → INPPIK 12:18
PROVIDERS: ADMIT Internal Medicine; ATTEND Internal Medicine

== ENCOUNTER 2022-03-09 12:24 | Inpatient (IN) ==
[2022-03-09] MEDS ORDERED: Acetaminophen 325 MG TABLET PO PRN (16:23)
[2022-03-09] MEDS ORDERED: Ondansetron ODT 4 MG TAB.RAPDIS SL PRN (16:30)
[2022-03-09] MEDS ORDERED: D5% in Water 1,000 ML IVC PRN (16:33)
[2022-03-09] MEDS ORDERED: *HR* Dextrose 50 % in Water (Syg) 50 ML SYRINGE IVP PRN (16:33)
[2022-03-09] MEDS ORDERED: Dextrose Gel 15 GM/37.5 ML TUBE PO PRN ×2 (16:33)
[2022-03-09] MEDS ORDERED: levoFLOXacin 750 MG TABLET PO SCH (17:00)
[2022-03-09] MEDS ORDERED: clonazePAM 1 MG TABLET PO SCH (21:00)
[2022-03-09] MEDS: Gabapentin 300 MG CAPSULE PO SCH (21:30)
[2022-03-09] MEDS: Verapamil ER (24 HR) 180 MG TABLET.ER PO SCH (21:30)
[2022-03-09] MEDS: clonazePAM 0.5 MG TABLET PO SCH (21:30)
[2022-03-09] MEDS: Insulin LISPRO 300 UNITS/3 ML VIAL SUBQ SCH (21:31)
[2022-03-10] MEDS: *HR* Enoxaparin 40 MG/0.4 ML SYRINGE SQ SCH (06:22)
[2022-03-10] MEDS ORDERED: *HR* SitaGLIPtin 25 MG TABLET PO SCH (08:00)
[2022-03-10 08:06] LABS: Basophils % 0.3 %; Eosinophils # 0.1 K/mcL (0.0-0.6); Eosinophils % 1.9 %; Hematocrit 26.1 % (35.3-44.9); Hemoglobin 8.6 g/dL (11.5-15.4); Immature Granulocytes % 1.1 % (0-4); Lymphocytes % 30.8 %; Mean Corpuscular Hemoglobin 28.3 pg (28.0-33.3); Mean Corpuscular Volume 85.9 fL (83.0-100.0); Mean Platelet Volume 9.6 fL (9.4-12.4); Monocytes # 0.8 K/mcL (0.0-1.3); Monocytes % 12.7 %; Neutrophils # 3.4 K/mcL (1.6-8.9); Platelet Count 332 K/mcL (140-400); Red Blood Count 3.04 M/mcL (3.82-4.97); Red Cell Distribution Width 16.8 % (11.5-14.5); Segmented Neutrophils % 53.2 %; White Blood Count 6.4 K/mcL (4.3-11.1)
[2022-03-10 08:26] LABS: Calcium 8.3 mg/dL (8.6-10.3); Potassium 3.4 mEq/L (3.5-5.1)
[2022-03-10] MEDS ORDERED: predniSONE 20 MG TABLET PO SCH (09:00)
[2022-03-10] MEDS: Insulin LISPRO 300 UNITS/3 ML VIAL SUBQ SCH ×4 (09:02→20:09)
[2022-03-10] MEDS: Aspirin Enteric Coated 81 MG Tablet PO SCH (09:19)
[2022-03-10] MEDS: Furosemide 20 MG TABLET PO SCH (09:20)
[2022-03-10] MEDS: *HR* SitaGLIPtin 25 MG TABLET PO SCH (09:20)
[2022-03-10] MEDS: Gabapentin 300 MG CAPSULE PO SCH ×2 (09:20→20:09)
[2022-03-10] MEDS: FLUoxetine HCl 10 MG CAPSULE PO SCH (09:21)
[2022-03-10] MEDS: *HR* Metformin 500 MG TABLET PO SCH (09:23)
[2022-03-10] MEDS: levoFLOXacin 750 MG TABLET PO SCH (09:23)
[2022-03-10] MEDS: Verapamil ER (24 HR) 180 MG TABLET.ER PO SCH ×2 (09:24→20:09)
[2022-03-10] MEDS: Nicotine 14 MG PATCH.TD24 TD SCH (09:25)
[2022-03-10] MEDS: clonazePAM 0.5 MG TABLET PO SCH (20:08)
[2022-03-11] MEDS: *HR* Enoxaparin 40 MG/0.4 ML SYRINGE SQ SCH (05:16)
[2022-03-11] MEDS: Insulin LISPRO 300 UNITS/3 ML VIAL SUBQ SCH ×4 (07:16→19:53)
[2022-03-11] MEDS: *HR* Metformin 500 MG TABLET PO SCH (07:40)
[2022-03-11] MEDS: *HR* SitaGLIPtin 25 MG TABLET PO SCH (07:41)
[2022-03-11] MEDS: Nicotine 14 MG PATCH.TD24 TD SCH (09:14)
[2022-03-11] MEDS: Verapamil ER (24 HR) 180 MG TABLET.ER PO SCH ×2 (09:14→19:52)
[2022-03-11] MEDS: FLUoxetine HCl 10 MG CAPSULE PO SCH (09:14)
[2022-03-11] MEDS: Gabapentin 300 MG CAPSULE PO SCH ×2 (09:15→19:53)
[2022-03-11] MEDS: Aspirin Enteric Coated 81 MG Tablet PO SCH (09:15)
[2022-03-11] MEDS: Furosemide 20 MG TABLET PO SCH (09:15)
[2022-03-11] MEDS: clonazePAM 0.5 MG TABLET PO SCH (19:52)
[2022-03-12] MEDS: *HR* Enoxaparin 40 MG/0.4 ML SYRINGE SQ SCH (05:24)
[2022-03-12] MEDS: *HR* SitaGLIPtin 25 MG TABLET PO SCH (07:24)
[2022-03-12] MEDS: Aspirin Enteric Coated 81 MG Tablet PO SCH (07:24)
[2022-03-12] MEDS: Nicotine 14 MG PATCH.TD24 TD SCH (07:24)
[2022-03-12] MEDS: Verapamil ER (24 HR) 180 MG TABLET.ER PO SCH ×2 (07:25→21:53)
[2022-03-12] MEDS: Furosemide 20 MG TABLET PO SCH (07:25)
[2022-03-12] MEDS: FLUoxetine HCl 10 MG CAPSULE PO SCH (07:25)
[2022-03-12] MEDS: levoFLOXacin 750 MG TABLET PO SCH (07:25)
[2022-03-12] MEDS: *HR* Metformin 500 MG TABLET PO SCH (07:25)
[2022-03-12] MEDS: Gabapentin 300 MG CAPSULE PO SCH ×2 (07:25→21:53)
[2022-03-12] MEDS: Insulin LISPRO 300 UNITS/3 ML VIAL SUBQ SCH ×4 (07:30→21:54)
[2022-03-12] MEDS: amLODIPine 5 MG TABLET PO SCH (10:56)
[2022-03-12] MEDS: clonazePAM 0.5 MG TABLET PO SCH (21:53)
[2022-03-13] MEDS: *HR* Enoxaparin 40 MG/0.4 ML SYRINGE SQ SCH (05:59)
[2022-03-13] MEDS: amLODIPine 5 MG TABLET PO SCH (08:10)
[2022-03-13] MEDS: *HR* SitaGLIPtin 25 MG TABLET PO SCH (08:10)
[2022-03-13] MEDS: Nicotine 14 MG PATCH.TD24 TD SCH (08:10)
[2022-03-13] MEDS: Aspirin Enteric Coated 81 MG Tablet PO SCH (08:10)
[2022-03-13] MEDS: *HR* Metformin 500 MG TABLET PO SCH (08:10)
[2022-03-13] MEDS: Verapamil ER (24 HR) 180 MG TABLET.ER PO SCH ×2 (08:10→21:53)
[2022-03-13] MEDS: Gabapentin 300 MG CAPSULE PO SCH ×2 (08:10→21:53)
[2022-03-13] MEDS: Furosemide 20 MG TABLET PO SCH (08:11)
[2022-03-13] MEDS: FLUoxetine HCl 10 MG CAPSULE PO SCH (08:11)
[2022-03-13] MEDS: levoFLOXacin 750 MG TABLET PO SCH (08:16)
[2022-03-13] MEDS: Insulin LISPRO 300 UNITS/3 ML VIAL SUBQ SCH ×4 (11:26→21:42)
[2022-03-13] MEDS: clonazePAM 0.5 MG TABLET PO SCH (21:53)
[2022-03-14] MEDS: *HR* Enoxaparin 40 MG/0.4 ML SYRINGE SQ SCH (05:03)
[2022-03-14] MEDS: Insulin LISPRO 300 UNITS/3 ML VIAL SUBQ SCH ×4 (07:19→20:18)
[2022-03-14] MEDS: Furosemide 20 MG TABLET PO SCH (09:07)
[2022-03-14] MEDS: *HR* Metformin 500 MG TABLET PO SCH (09:08)
[2022-03-14] MEDS: amLODIPine 5 MG TABLET PO SCH (09:08)
[2022-03-14] MEDS: levoFLOXacin 750 MG TABLET PO SCH (09:08)
[2022-03-14] MEDS: Gabapentin 300 MG CAPSULE PO SCH ×2 (09:08→20:18)
[2022-03-14] MEDS: *HR* SitaGLIPtin 25 MG TABLET PO SCH (09:08)
[2022-03-14] MEDS: Nicotine 14 MG PATCH.TD24 TD SCH (09:08)
[2022-03-14] MEDS: Verapamil ER (24 HR) 180 MG TABLET.ER PO SCH ×2 (09:08→20:18)
[2022-03-14] MEDS: Aspirin Enteric Coated 81 MG Tablet PO SCH (09:08)
[2022-03-14] MEDS: FLUoxetine HCl 10 MG CAPSULE PO SCH (09:08)
[2022-03-14] MEDS: clonazePAM 0.5 MG TABLET PO SCH (20:18)
[2022-03-15] MEDS: *HR* Enoxaparin 40 MG/0.4 ML SYRINGE SQ SCH (06:02)
[2022-03-15] MEDS: Insulin LISPRO 300 UNITS/3 ML VIAL SUBQ SCH ×4 (07:55→21:39)
[2022-03-15] MEDS: FLUoxetine HCl 10 MG CAPSULE PO SCH (07:56)
[2022-03-15] MEDS: *HR* SitaGLIPtin 25 MG TABLET PO SCH (07:56)
[2022-03-15] MEDS: levoFLOXacin 750 MG TABLET PO SCH (07:57)
[2022-03-15] MEDS: amLODIPine 5 MG TABLET PO SCH (07:57)
[2022-03-15] MEDS: *HR* Metformin 500 MG TABLET PO SCH (07:57)
[2022-03-15] MEDS: Aspirin Enteric Coated 81 MG Tablet PO SCH (07:57)
[2022-03-15] MEDS: Gabapentin 300 MG CAPSULE PO SCH ×2 (07:57→21:40)
[2022-03-15] MEDS: Verapamil ER (24 HR) 180 MG TABLET.ER PO SCH ×2 (07:57→21:39)
[2022-03-15] MEDS: Furosemide 20 MG TABLET PO SCH (07:57)
[2022-03-15] MEDS: Nicotine 14 MG PATCH.TD24 TD SCH (07:58)
[2022-03-15] MEDS: clonazePAM 0.5 MG TABLET PO SCH (21:39)
[2022-03-16] MEDS: *HR* Enoxaparin 40 MG/0.4 ML SYRINGE SQ SCH (05:54)
[2022-03-16] MEDS: Insulin LISPRO 300 UNITS/3 ML VIAL SUBQ SCH ×4 (08:17→20:19)
[2022-03-16] MEDS: Aspirin Enteric Coated 81 MG Tablet PO SCH (09:15)
[2022-03-16] MEDS: *HR* SitaGLIPtin 25 MG TABLET PO SCH (09:15)
[2022-03-16] MEDS: Gabapentin 300 MG CAPSULE PO SCH ×2 (09:15→20:17)
[2022-03-16] MEDS: FLUoxetine HCl 10 MG CAPSULE PO SCH (09:15)
[2022-03-16] MEDS: Furosemide 20 MG TABLET PO SCH (09:15)
[2022-03-16] MEDS: levoFLOXacin 750 MG TABLET PO SCH (09:15)
[2022-03-16] MEDS: Nicotine 14 MG PATCH.TD24 TD SCH (09:15)
[2022-03-16] MEDS: amLODIPine 5 MG TABLET PO SCH (09:15)
[2022-03-16] MEDS: *HR* Metformin 500 MG TABLET PO SCH (09:15)
[2022-03-16] MEDS: Verapamil ER (24 HR) 180 MG TABLET.ER PO SCH ×2 (09:15→20:17)
[2022-03-16] MEDS: clonazePAM 0.5 MG TABLET PO SCH (20:17)
[2022-03-17] MEDS: *HR* Enoxaparin 40 MG/0.4 ML SYRINGE SQ SCH (05:32)
[2022-03-17] MEDS: Insulin LISPRO 300 UNITS/3 ML VIAL SUBQ SCH ×4 (07:48→20:56)
[2022-03-17] MEDS: Nicotine 14 MG PATCH.TD24 TD SCH (07:49)
[2022-03-17] MEDS: levoFLOXacin 750 MG TABLET PO SCH (07:49)
[2022-03-17] MEDS: Verapamil ER (24 HR) 180 MG TABLET.ER PO SCH ×2 (07:49→20:56)
[2022-03-17] MEDS: *HR* SitaGLIPtin 25 MG TABLET PO SCH (07:50)
[2022-03-17] MEDS: amLODIPine 5 MG TABLET PO SCH (07:50)
[2022-03-17] MEDS: Gabapentin 300 MG CAPSULE PO SCH ×2 (07:50→20:56)
[2022-03-17] MEDS: *HR* Metformin 500 MG TABLET PO SCH (07:50)
[2022-03-17] MEDS: Aspirin Enteric Coated 81 MG Tablet PO SCH (07:50)
[2022-03-17] MEDS: FLUoxetine HCl 10 MG CAPSULE PO SCH (07:50)
[2022-03-17] MEDS: Furosemide 20 MG TABLET PO SCH (07:50)
[2022-03-17 08:26] LABS: Basophils % 0.3 %; Eosinophils # 0.2 K/mcL (0.0-0.6); Eosinophils % 2.3 %; Hematocrit 30.7 % (35.3-44.9); Hemoglobin 9.6 g/dL (11.5-15.4); Immature Granulocytes % 0.3 % (0-4); Lymphocytes # 1.9 K/mcL (0.6-4.6); Lymphocytes % 29.3 %; Mean Corpuscular HGB Conc 31.3 g/dL (31.6-35.5); Mean Corpuscular Hemoglobin 27.2 pg (28.0-33.3); Monocytes # 0.8 K/mcL (0.0-1.3); Monocytes % 11.4 %; Neutrophils # 3.7 K/mcL (1.6-8.9); Platelet Count 302 K/mcL (140-400); Red Blood Count 3.53 M/mcL (3.82-4.97); Red Cell Distribution Width 17.1 % (11.5-14.5); Segmented Neutrophils % 56.4 %; White Blood Count 6.6 K/mcL (4.3-11.1)
[2022-03-17 09:13] LABS: Calcium 8.4 mg/dL (8.6-10.3); Magnesium 1.7 mg/dL (1.6-2.6); Potassium 3.5 mEq/L (3.5-5.1)
[2022-03-17] MEDS: clonazePAM 0.5 MG TABLET PO SCH (20:56)
[2022-03-18] MEDS: *HR* Enoxaparin 40 MG/0.4 ML SYRINGE SQ SCH (06:29)
[2022-03-18] MEDS: Insulin LISPRO 300 UNITS/3 ML VIAL SUBQ SCH (08:25)
[2022-03-18] MEDS: Nicotine 14 MG PATCH.TD24 TD SCH (08:39)
[2022-03-18] MEDS: Verapamil ER (24 HR) 180 MG TABLET.ER PO SCH (08:40)
[2022-03-18] MEDS: FLUoxetine HCl 10 MG CAPSULE PO SCH (08:40)
[2022-03-18] MEDS: Gabapentin 300 MG CAPSULE PO SCH (08:41)
[2022-03-18] MEDS: Furosemide 20 MG TABLET PO SCH (08:41)
[2022-03-18] MEDS: *HR* Metformin 500 MG TABLET PO SCH (08:41)
[2022-03-18] MEDS: *HR* SitaGLIPtin 25 MG TABLET PO SCH (08:41)
[2022-03-18] MEDS: amLODIPine 5 MG TABLET PO SCH (08:41)
[2022-03-18] MEDS: Aspirin Enteric Coated 81 MG Tablet PO SCH (08:42)
[2022-03-18 10:16] VITALS: RESP 17
[2022-03-18 14:37] VITALS: BP 135/56; PULSE 70; TEMP 98.4; O2SAT 95
[2022-03-19] MEDS ORDERED: levoFLOXacin 750 MG TABLET PO SCH (09:00)
== END 2022-03-18 16:09 | disposition home health service (06) | DRG 193 ==
LOC: INPPIK 15:24 → SUATTDRO 15:24
PROVIDERS: ADMIT Internal Medicine; ATTEND Family Medicine